=== PATIENT | female | born 1960 | race Hispanic/Latino ===

== ENCOUNTER 2018-08-21 22:01 | Emergency (ER) | payer SELFPAY ==
--- NOTE | 2018-08-21 22:23 | RAD ---
PORTABLE CHEST ONE VIEW: 08/21/18 at 10:12 p.m. HISTORY: Shortness of breath. COMPARISON: Comparison is made with the exam of 09/08/16. FINDINGS: The heart is enlarged. The lungs are expanded without focal areas of consolidation, pneumothoraces, f rank pulmonary edema or pleural effusions. IMPRESSION: No acute process. POS: [facility]
[2018-08-21 22:48] LABS: #Eosinphils 0.1 thou/uL (0.0-0.7); #Lymphocytes 2.1 thou/uL (1.20-3.40); #Monocytes 0.6 thou/uL (0.11-0.59); #Neutrophils 5.3 thou/uL (1.40-6.50); %Basophils 0.4 % (0.0-1.0); %Eosinophils 0.9 % (0.0-10.0); %Lymphocytes 25.4 % (21.0-51.0); %Monocytes 7.5 % (0.0-10.0); %Neutrophils 65.8 % (42.0-75.0); Hemoglobin 13.3 g/dL (12.0-16.0); Mean Corpuscular HGB CONC 33.4 g/dL (32.0-36.0); Mean Corpuscular Hemoglobin 27.7 pg (27.0-31.0); Mean Corpuscular Volume 83.1 fL (78.0-98.0); Mean Platelet Volume 8.8 fL (7.4-10.4); Platelet Count 182 thou/uL (130-400); RBC Distribution Width 13.7 % (11.5-14.5); Red Blood Cell (RBC) Count 4.78 mill/uL (4.20-5.40); White Blood Cell (WBC) Count 8.1 thou/uL (4.8-10.8)
[2018-08-21 23:19] LABS: ALT (SGPT) 8 U/L (8-55); AST (SGOT) 12 U/L (5-34); Albumin 3.6 g/dL (3.5-5.0); Alkaline Phosphatase 121 U/L (40-150); Anion Gap 9 mmol/L (10-20); BUN (Urea Nitrogen) 14 mg/dL (9.8-20.1); Bilirubin, Total 0.6 mg/dL (0.2-1.2); Calc. Creatinine Clearance 0 mL/min (70-130); Calcium 9.8 mg/dL (7.8-10.44); Carbon Dioxide 29 mmol/L (22-29); Chloride 101 mmol/L (98-107); Estimated GFR-MDRD 73; Glucose 209 mg/dL (70-105); Lipase 31 U/L (8-78); Potassium 4.1 mmol/L (3.5-5.1); Protein, Total 7.6 g/dL (6.0-8.3); Sodium 135 mmol/L (136-145)
[2018-08-22 02:42] LABS: Bilirubin Small (Negative); Blood, Urine Negative (Negative); Glucose, Urine (Dipstick) 500 mg/dL (Negative); Leukocyte Negative (Negative); Nitrite Negative (Negative); Protein, Urine (Dipstick) Negative (Neg-Trace); Specific Gravity, Urine 1.025 (1.005-1.030); pH, Urine 5.5 (5.0-9.0)
[2018-08-22 02:44] LABS: Clarity Clear (Clear)
[2018-08-22] MEDS ORDERED: Magnesium Citrate 300 ML BOT ONE (03:46)
--- NOTE | 2018-08-22 07:44 | CT ---
PRELIMINARY REPORT: CT Abdomen and Pelvis With Contrast EXAM DATE/TIME: 08/22/2018 2:00 AM CLINICAL HISTORY: 57 years old, female; Pain; Abdominal pain; Localized; Left; Prior surgery; Patient HX: Patient repor ts abdominal bloating and pain increasing over the past month. She reports left sided pain. PT reports increased SOB with exertion. She reports history of hernia and gallbladder removal. PT denies nausea/vomiting or diarrhea. TECHNIQUE: Imaging protocol: Axial computed tomography images of the abdomen and pelvis with intravenous contrast. Coronal reformatted images were created and reviewed. COMPARISON: No relevant prior studies available. FINDINGS: Lower thorax: No acute findings. ABDOMEN: Liver: Normal. No mass. Gallbladder and bile ducts: Gallbladder not visualized. No biliary ductal dilatation. Pancreas: Normal. No ductal dilation. Spleen: Normal. No splenomegaly. Adrenals: Normal. No mass. Kidneys and ureters: Normal. No hydronephrosis. Stomach and bowel: No bowel wall thickening or intestinal obstruction. Appendix: Normal appendix. PELVIS: Bladder: Unremarkable as visualized. Reproductive: Unremarkable as visualized. ABDOMEN and PELVIS: Intraperitoneal space: Normal. No free air. No significant fluid collection. Bones/joints: No acute fracture. No dislocation. Soft tissues: Large fat containing umbilical hernia. No associated inflammation. Vasculature: Normal. No abdominal aortic aneurysm. Lymph nodes: Normal. No enlarged lymph nodes. IMPRESSION: No acute findings. Thank you for allowing us to participate in the care of your patient. Dictated and Authenticated by: Domingo Maher MD 08/22/2018 3:22 AM Central Time ([place] & [place]) FINAL REPORT: IMPRESSION: Agree with the preliminary interpretation given by [facility]. Transcribed Date/Time: 08/22/2018 8:33 AM
== END 2018-08-22 03:50 | disposition home or self-care (01) ==
LOC: ERS 22:01
DX: K59.00 Constipation, unspecified (principal); E11.9 Type 2 diabetes mellitus without complications; E03.9 Hypothyroidism, unspecified; F41.9 Anxiety disorder, unspecified; Z79.84 Long term (current) use of oral hypoglycemic drugs; Z79.899 Other long term (current) drug therapy
CPT/HCPCS: 36415; 71045; 74177; 80053; 81003; 83690; 84484; 85025; 93005

== ENCOUNTER 2018-11-24 17:17 | Emergency (ER) | payer MEDICAID ==
[2018-11-24 18:08] LABS: Bacteria/HPF 2+ HPF (None Seen); Bilirubin Negative (Negative); Blood, Urine Trace (Negative); Clarity Turbid (Clear); Glucose, Urine (Dipstick) Greater than 1000 mg/dL (Negative); Leukocyte 500 Leu/uL (Negative); Mucous/LPF 2+ LPF (<2+); Nitrite Negative (Negative); Protein, Urine (Dipstick) 30 mg/dL (Neg-Trace); WBC/HPF Greater than 50 HPF (0-3)
[2018-11-24 18:18] LABS: #Eosinphils 0.1 thou/uL (0.0-0.7); #Lymphocytes 1.9 thou/uL (1.20-3.40); #Monocytes 0.6 thou/uL (0.11-0.59); #Neutrophils 4.6 thou/uL (1.40-6.50); %Basophils 0.1 % (0.0-1.0); %Eosinophils 0.8 % (0.0-10.0); %Lymphocytes 26.9 % (21.0-51.0); %Monocytes 7.6 % (0.0-10.0); %Neutrophils 64.7 % (42.0-75.0); Hemoglobin 13.2 g/dL (12.0-16.0); Mean Corpuscular HGB CONC 32.4 g/dL (32.0-36.0); Mean Corpuscular Hemoglobin 27.5 pg (27.0-31.0); Mean Corpuscular Volume 84.9 fL (78.0-98.0); Mean Platelet Volume 9.1 fL (7.4-10.4); Platelet Count 147 thou/uL (130-400); RBC Distribution Width 15.2 % (11.5-14.5); White Blood Cell (WBC) Count 7.2 thou/uL (4.8-10.8)
[2018-11-24 18:42] LABS: ALT (SGPT) 20 U/L (8-55); AST (SGOT) 22 U/L (5-34); Albumin 3.5 g/dL (3.5-5.0); Alkaline Phosphatase 105 U/L (40-150); Anion Gap 11 mmol/L (10-20); BUN (Urea Nitrogen) 8 mg/dL (9.8-20.1); Bilirubin, Total 0.9 mg/dL (0.2-1.2); Calc. Creatinine Clearance 0 mL/min (70-130); Calcium 9.6 mg/dL (7.8-10.44); Carbon Dioxide 26 mmol/L (22-29); Chloride 101 mmol/L (98-107); Estimated GFR-MDRD 82; Globulin 3.8 g/dL (2.4-3.5); Glucose 241 mg/dL (70-105); Protein, Total 7.3 g/dL (6.0-8.3); Sodium 134 mmol/L (136-145)
[2018-11-24 18:59] LABS: Free T4 (Free Thyroxine) 0.62 ng/dL (0.70-1.48); Thyroid Stimulating Hormone 30.5801 uIU/mL (0.35-4.94)
== END 2018-11-24 19:30 | disposition home or self-care (01) ==
LOC: ERS 17:17
DX: E03.9 Hypothyroidism, unspecified (principal); E11.9 Type 2 diabetes mellitus without complications; F41.9 Anxiety disorder, unspecified; F32.9 Major depressive disorder, single episode, unspecified; Z79.84 Long term (current) use of oral hypoglycemic drugs; Z79.899 Other long term (current) drug therapy
CPT/HCPCS: 36415; 80053; 81003; 81015; 84439; 84443; 85025; 99284

== ENCOUNTER 2020-05-18 19:07 | Inpatient (IN) | payer MEDICAID, OTHER ==
[~2020-05-18 19:07] MED LIST: Iopamidol-370 76% 500 ML 1 ML ONE
--- NOTE | 2020-05-18 19:27 | CT ---
CT BRAIN: Date: 05-18-2020 PROVIDED CLINICAL HISTORY: Left sided weakness and numbness Comparison: 10-23-12 FINDINGS: The ventricular system appears normal in size and morphology. There is no evidence for intracranial h emorrhage or mass effect. The extracranial soft tissues and osseous structures demonstrate an unremar kable CT appearance. IMPRESSION: No evidence for intracranial hemorrhage or mass effect. Findings discussed with Dr. Mendez via telep yusef, 7:21 p.m. on 05-18-2020. POS: [facility]
[2020-05-18 19:36] LABS: #Eosinphils 0.1 thou/uL (0.0-0.7); #Lymphocytes 2.5 thou/uL (1.20-3.40); #Monocytes 0.5 thou/uL (0.11-0.59); #Neutrophils 5.1 thou/uL (1.40-6.50); %Basophils 0.4 % (0.0-1.0); %Eosinophils 1.2 % (0.0-10.0); %Monocytes 6.4 % (0.0-10.0); Hemoglobin 14.1 g/dL (12.0-16.0); Mean Corpuscular Hemoglobin 28.8 pg (27.0-31.0); Mean Corpuscular Volume 84.5 fL (78.0-98.0); Mean Platelet Volume 9.2 fL (7.4-10.4); Platelet Count 167 thou/uL (130-400); RBC Distribution Width 13.4 % (11.5-14.5); Red Blood Cell (RBC) Count 4.89 mill/uL (4.20-5.40); White Blood Cell (WBC) Count 8.2 thou/uL (4.8-10.8)
[2020-05-18 19:42] LABS: PTT 28.6 sec (22.9-36.1)
[2020-05-18 19:43] LABS: INR-International Normal Ratio 0.9; Prothrombin Time 12.6 sec (12.0-14.7)
[2020-05-18 19:57] LABS: ALT (SGPT) 12 U/L (8-55); AST (SGOT) 11 U/L (5-34); Albumin 3.8 g/dL (3.5-5.0); Alkaline Phosphatase 134 U/L (40-110); Anion Gap 18 mmol/L (10-20); BUN (Urea Nitrogen) 14 mg/dL (9.8-20.1); Bilirubin, Total 0.5 mg/dL (0.2-1.2); Calc. Creatinine Clearance 0 mL/min (70-130); Calcium 10.4 mg/dL (7.8-10.44); Carbon Dioxide 24 mmol/L (22-29); Chloride 97 mmol/L (98-107); Glucose 437 mg/dL (70-105); Potassium 4.4 mmol/L (3.5-5.1); Protein, Total 7.8 g/dL (6.0-8.3); Sodium 135 mmol/L (136-145)
[2020-05-18] MEDS ORDERED: Aspirin Chewable 81 MG TAB ONE (22:53)
[2020-05-18] MEDS ORDERED: Insulin Regular 300 UNITS/3 ML VIAL ONE (22:53)
[2020-05-18] MEDS ORDERED: Labetalol HCl 100 MG/20 ML VIAL ONE (23:38)
[2020-05-19] MEDS ORDERED: Ondansetron PF 4 MG/2 ML Vial ONE ×3 (00:38→18:36)
[2020-05-19] MEDS ORDERED: Ondansetron ODT 4 MG TAB PO PRN (01:22)
--- NOTE | 2020-05-19 01:48 | PDOC.HHP ---
Hospitalist HPI - History of Present Illness Left-sided weakness History of Present Illness: 59-year-old male patient with a history of diabetes and hypothyroidism was brought in by EMS on account of left-sided weakness. This occurred suddenly while she was sitting in a chair. On arrival EMS noted her blood pressure was 200/29, heart rate 94 and breathing 98% on room air. On arrival CBC was generally unremarkable, showed a mild hyponatremia of 126 and glucose elevated at 437. CT scan of her head and CTA showed no evidence of intracranial hemorrhage or mass with no hemodynamic medically significant stenosis, occlusion or aneurysm respectively. Complex cystic lesion was noted in the region of the left parotid gland. At presentation she met criteria for TPA however on discussion with family they refused to take it. After several hours he reconsidered and also ended up declining. Patient receiv ed 325 mg aspirin, labetalol for blood pressure and 10 units regular insulin. Also received a liter of normal saline. Hospitalist team was consulted to admit Hospitalist ROS - Review of Systems Constitutional: denies: fever, chills, sweats, weakness Eyes: denies: pain, vision change, conjunctivae inflammation Cardiovascular: denies: chest pain, palpitations, orthopnea, paroxysmal noc. dyspnea Gastrointestinal: denies: nausea, vomiting, abdominal pain, diarrhea Genitourinary: denies: dysuria, frequency, incontinence, hematuria Musculoskeletal: denies: neck pain, shoulder pain, arm pain, back pain Neurological: reports: weakness, numbness, change in speech. denies: incoordina tion, confusion All other systems reviewed; all pertinent +/- noted in HPI/Subj - Medication Medications: Medications: Currently refer to ambulatory list Allergies: No known drug allergies. Hospitalist History - Past Medical History Other Medical History: Diabetes mellitus - Past Surgical History Other Surgical History: Hernia repair - Family History Family History: reports: cerebrovascular accident - Social History Smoking Status: Never smoker Alcohol: reports: None Living Situation: With Family - Exam General Appearance: awake alert General - other findings: Patiently slightly depressed Eye: PERRL, anicteric sclera ENT: normocephalic atraumatic, no oropharyngeal lesions Neck: supple, symmetric, no JVD, no thyromegaly Heart: RRR, no murmur, no gallops, no rubs Respiratory: CTAB, no wheezes, no rales, no ronchi Gastrointestinal: soft, non-tender, non-distended, normal bowel sounds Extremities: no cyanosis, no clubbing, no edema Skin: normal turgor, no lesions, no rashes Neurological - other findings: Left facial droop, left-sided hemiparesis Psychiatric: normal behavior, A&O x 3 Hospitalist Results - Labs Result Diagrams: 05/22/20 05:05 05/22/20 05:05 Lab results: WBC 8.2 thou/uL (4.8-10.8) 05/18/20 19:18 Hgb 14.1 g/dL (12.0-16.0) 05/18/20 19:18 Hct 41.3 % (36.0-47.0) 05/18/20 19:18 MCV 84.5 fL (78.0-98.0) 05/18/20 19:18 Plt Count 167 thou/uL (130-400) 05/18/20 19:18 Neutrophils % 62.0 % (42.0-75.0) 05/18/20 19:18 Sodium 135 mmol/L (136-145) L 05/18/20 19:18 Potassium 4.4 mmol/L (3.5-5.1) 05/18/20 19:18 Chloride 97 mmol/L (98-107) L 05/18/20 19:18 Carbon Dioxide 24 mmol/L (22-29) 05/18/20 19:18 BUN 14 mg/dL (9.8-20.1) 05/18/20 19:18 Creatinine 0.85 mg/dL (0.6-1.1) 05/18/20 19:18 Glucose 437 mg/dL (70-105) H 05/18/20 19:18 Calcium 10.4 mg/dL (7.8-10.44) 05/18/20 19:18 Total Bilirubin 0.5 mg/dL (0.2-1.2) 05/18/20 19:18 AST 11 U/L (5-34) 05/18/20 19:18 ALT 12 U/L (8-55) 05/18/20 19:18 Alkaline Phosphatase 134 U/L (40-110) H 05/18/20 19:18 Troponin I Less than 0.010 ng/mL (< 0.028) 05/18/20 19:18 B-Natriuretic Peptide Less than 10.0 pg/mL (0-100) 05/18/20 19:18 Serum Total Protein 7.8 g/dL (6.0-8.3) 05/18/20 19:18 Albumin 3.8 g/dL (3.5-5.0) 05/18/20 19:18 Hospitalist H&P A/P - Plan Plan: This is a 59-year-old female patient history of diabetes mellitus presenting with left-sided face and body weakness concerning for acute stroke. Patient refused TPA although she was within the window. Stroke Ischemicunclear mechanism. CTA reveals no lesions. We will do echo in a.m. with bubble study Continue aspirin Statin PT OT evaluation Neuro consult in a.m. Diabetes mellitus Start correctional insulin Monitor glucose. Left neck lesion Consider evaluation with MRI VT prophylaxisLovenox CODE STATUSfull code
[2020-05-19] MEDS ORDERED: Dextrose 5% in Water 1,000 ML IV PRN (02:23)
[2020-05-19] MEDS ORDERED: Dextrose 50% Abboject 50 ML SYRINGE SLOW IVP PRN (02:23)
[2020-05-19] MEDS: Ondansetron PF 4 MG/2 ML Vial IVP PRN ×2 (03:31→18:46)
[2020-05-19 05:56] LABS: #Lymphocytes 2.2 thou/uL (1.20-3.40); #Monocytes 0.6 thou/uL (0.11-0.59); #Neutrophils 6.4 thou/uL (1.40-6.50); %Basophils 0.4 % (0.0-1.0); %Eosinophils 0.5 % (0.0-10.0); %Monocytes 6.3 % (0.0-10.0); %Neutrophils 68.7 % (42.0-75.0); Hemoglobin 12.9 g/dL (12.0-16.0); Mean Corpuscular HGB CONC 32.8 g/dL (32.0-36.0); Mean Corpuscular Hemoglobin 27.8 pg (27.0-31.0); Mean Corpuscular Volume 84.7 fL (78.0-98.0); Mean Platelet Volume 9.4 fL (7.4-10.4); Platelet Count 177 thou/uL (130-400); RBC Distribution Width 13.4 % (11.5-14.5); Red Blood Cell (RBC) Count 4.63 mill/uL (4.20-5.40); White Blood Cell (WBC) Count 9.3 thou/uL (4.8-10.8)
[2020-05-19 06:14] LABS: Anion Gap 13 mmol/L (10-20); BUN (Urea Nitrogen) 13 mg/dL (9.8-20.1); Calc. Creatinine Clearance 0 mL/min (70-130); Calcium 9.6 mg/dL (7.8-10.44); Carbon Dioxide 28 mmol/L (22-29); Cardiac Risk 6.1 (Less than 4.5); Chloride 98 mmol/L (98-107); Cholesterol 201 mg/dl (< 200 Desired); Glucose 316 mg/dL (70-105); HDL Cholesterol 33 mg/dL (>60 Neg Risk); LDL Cholesterol, Calculated 121 mg/dL; Sodium 135 mmol/L (136-145); Triglycerides 236 mg/dL (Less than 150)
[2020-05-19] MEDS: Aspirin 81 mg Enteric Coated Tablet PO SCH ×2 (12:50→13:06)
[2020-05-19] MEDS ORDERED: Enoxaparin Sodium 40 MG/0.4 ML SYRINGE ONE (12:51)
[2020-05-19] MEDS ORDERED: Aspirin 81 mg Enteric Coated Tablet ONE (13:01)
[2020-05-19] MEDS: Enoxaparin Sodium 40 MG/0.4 ML SYRINGE SC SCH (13:06)
--- NOTE | 2020-05-19 14:56 | CON ---
NEUROLOGY CONSULTATION DATE OF CONSULTATION: 05/19/2020 REASON FOR CONSULTATION: Left-sided weakness, stroke. HISTORY OF PRESENT ILLNESS: Ms. Raegan Bartlett is a 59-year-old female with medical history significant for diabetes and hypothyroidism, brought by EMS because of left-sided weakness. Per patient, she was sitting in a chair and all of a sudden she felt weak on the left side of her body. She called her friend who asked her to come to the emergency room to evaluate for stroke. When EMS arrived, her blood pressure was 200/129, heart rate was 94, and she was breathing 98% on room air. She was also found to have hyponatremia of 126 and glucose elevated at 437. CT of the head was done, which did not reveal any evidence of acute intracranial pathology. CTA of the head did not reveal hemodynamically significant stenosis. She did meet criteria for tPA. However, on discussion with family, they declined tPA. The patient received aspirin 325 mg and labetalol for blood pressure and 10 units of regular insulin and normal saline and admitted for further stroke evaluation. The patient denies nausea, vomiting, headache, chest pain, abdominal pain, recent illness or recent exposure to COVID. REVIEW OF SYSTEMS: All systems reviewed and were negative except pertinent positives and negatives mentioned in the HPI. HOME MEDICATIONS: Please see medication reconciliation list for updated medications. ALLERGIES: NO KNOWN DRUG ALLERGIES. PAST MEDICAL HISTORY: Diabetes, hypothyroidism. PAST SURGICAL HISTORY: Hernia repair. FAMILY HISTORY: Significant for cerebrovascular accident. SOCIAL HISTORY: The patient lives with family. Denies smoking, alcohol or illegal drug use. PHYSICAL EXAMINATION: 180/90, heart rate was 90, and she was breathing 98% on room air. General Appearance: awake alert Eye: PERRL, anicteric sclera ENT: normocephalic atraumatic, no oropharyngeal lesions Neck: supple, symmetric, no JVD, no thyromegaly Heart: RRR, no murmur, no gallops, no rubs Respiratory: CTAB, no wheezes, no rales, no ronchi Gastrointestinal: soft, non-tender, non-distended, normal bowel sounds Extremities: no cyanosis, no clubbing, no edema Skin: normal turgor, no lesions, no rashes Neurological -Mental Status: The patient is alert and oriented to person, place, and time. Speech is slurred. Cranial nerves 2 through 12 intact except 7 left facial droop and 10 dysarthria. Motor, muscle, tone and bulk are normal. Strength is 5/5 in the right upper and lower extremities, 1/5 in the left upper and lower extremities. Cerebellar, unable to perform on the left secondary to weakness. Sensory decreased withdraws to nailbed pressure, right greater than left. Gait deferred due to patient's safety reasons. DATA REVIEWED: I reviewed the labs which were significant for hyperglycemia of 437. Lab results: WBC 8.2 thou/uL (4.8-10.8) 05/18/20 19:18 Hgb 14.1 g/dL (12.0-16.0) 05/18/20 19:18 Hct 41.3 % (36.0-47.0) 05/18/20 19:18 MCV 84.5 fL (78.0-98.0) 05/18/20 19:18 Plt Count 167 thou/uL (130-400) 05/18/20 19:18 Neutrophils % 62.0 % (42.0-75.0) 05/18/20 19:18 Sodium 135 mmol/L (136-145) L 05/18/20 19:18 Potassium 4.4 mmol/L (3.5-5.1) 05/18/20 19:18 Chloride 97 mmol/L (98-107) L 05/18/20 19:18 Carbon Dioxide 24 mmol/L (22-29) 05/18/20 19:18 BUN 14 mg/dL (9.8-20.1) 05/18/20 19:18 Creatinine 0.85 mg/dL (0.6-1.1) 05/18/20 19:18 Glucose 437 mg/dL (70-105) H 05/18/20 19:18 Calcium 10.4 mg/dL (7.8-10.44) 05/18/20 19:18 Total Bilirubin 0.5 mg/dL (0.2-1.2) 05/18/20 19:18 AST 11 U/L (5-34) 05/18/20 19:18 ALT 12 U/L (8-55) 05/18/20 19:18 Alkaline Phosphatase 134 U/L (40-110) H 05/18/20 19:18 Troponin I Less than 0.010 ng/mL (< 0.028) 05/18/20 19:18 B-Natriuretic Peptide Less than 10.0 pg/mL (0-100) 05/18/20 19:18 Serum Total Protein 7.8 g/dL (6.0-8.3) 05/18/20 19:18 Albumin 3.8 g/dL (3.5-5.0) 05/18/20 19:18 ASSESSMENT AND PLAN: Ms. Bartlett is a 59-year-old female with medical history significant for diabetes and hypothyroidism, presented with left facial droop and left-sided weakness consistent with acute stroke. The patient refused tPA, although she was within the window. Head CT reviewed which was negative for acute intracranial pathology. CTA of the head and neck did not reveal hemodynamically significant stenosis. Telemetry to rule out arrhythmias. 2D echo to evaluate left ventricular ejection fraction. Start aspirin and high-intensity statin for secondary stroke prevention. Check hemoglobin A1c, fasting lipid panel, and TSH, neuro checks every 4 hours. Permissive control of blood pressure at this time. Strict control of blood glucose. N.p.o. until cleared by speech or bedside nursing eval. Consider rectal aspirin until patient is cleared for oral intake. Telemetry to rule out arrhythmias. PT/OT/Speech. Continue medical management per primary team. Deep vein thrombosis prophylaxis. We will continue to follow. Plan discussed in detail with the patient, daughter at bedside and the primary attending Dr. Ch. Thank you for the consult. Job ID: [id number]
[2020-05-19] MEDS: Sodium Chloride 0.9% 1,000 ML IV SCH (17:03)
[2020-05-19 17:19] LABS: SARS-CoV-2 NAA Rapid Test Not Detected (NotDetected)
[2020-05-19] MEDS: Atorvastatin Calcium 40 MG TAB PO SCH (21:01)
[2020-05-20 01:27] VITALS: BMI 47.6
[2020-05-20] MEDS ORDERED: Aspirin 81 mg Enteric Coated Tablet ONE (09:13)
[2020-05-20] MEDS ORDERED: Aspirin Chewable 81 MG TAB ONE (09:13)
[2020-05-20] MEDS: Enoxaparin Sodium 40 MG/0.4 ML SYRINGE SC SCH (10:21)
[2020-05-20] MEDS: Aspirin 81 mg Enteric Coated Tablet PO SCH (10:22)
--- NOTE | 2020-05-20 10:52 | CT ---
EXAM: CT ANGIOGRAM OF THE HEAD AND NECK INDICATION: Stroke COMPARISON: None TECHNIQUE: CT angiogram of the head and neck are performed in the axial plane. Three-dimensional refo rmatted images are submitted for interpretation. FINDINGS: CTA OF THE HEAD WITH AND WITHOUT CONTRAST: POSTCONTRAST CT OF BRAIN: Pathologic enhancement: No pathologic enhancement the brain. Postcontrast soft tissue neck CT: Aerodigestive tract:Aerodigestive tract is patent. No mucosal abnormality. Limited evaluation of the oral cavity due to dental amalgam artifact. Epiglottis has a normal caliber. Preepiglottic fat is preserved. Sinuses: Adequate aeration of the paranasal sinuses and mastoid air cells.. Orbits: Bilateral ocular lens implants are appropriately located. Both globes are intact. Retrobulbar fat is preserved. Symmetric attenuation the optic nerves and ocular rectus muscles. Salivary glands:Symmetric attenuation of the parotid and symmetrical glands. There is a hypodense mas s posterior to the left parotid gland measuring 2.5 x 1.8 cm with an attenuation coefficient of 21 Hounsfield units. Complex cystic lesion is suspected. Nonemergent pre and postcontrast soft tissue ne ck MRI can be performed for better interrogation. Thyroid gland: Appropriate attenuation of the thyroid gland. Lymph nodes: No evidence of lymphadenopathy by size criteria. Paraspinal muscles: Symmetric attenuation of the sternocleidomastoid muscles. Appropriate attenuation of the paraspinal muscles. Cervical spine:Vertebral body heights are maintained. No fracture. Extensive anterior osteophyte form ation at C4-T1. Varying degrees of central canal stenosis and neural foraminal narrowing on the basis of degenerative change. Upper mediastinum and lung apices: No acute abnormality. CTA OF THE NECK WITH CONTRAST: Aorta: Appropriate enhancement and luminal diameter Right carotid artery: Appropriate enhancement and luminal diameter Left carotid: Appropriate enhancement and luminal diameter Subclavian arteries:Symmetric enhancement and luminal diameter Vertebral arteries:Occlusion of the proximal to mid right cervical vertebral artery. Distal vertebral artery may be present in extremely diminutive. Patent left vertebral artery, throughout its course in the neck. CTA OF THE BRAIN: Intracranial internal carotid arteries:Appropriate enhancement and luminal diameter. Atherosclerosis involving bilateral paraclinoid segments Anterior circulation: Appropriate enhancement and luminal diameter the A1 segments, A2 segments, M1 s egments and proximal MCA branches. Intracranial vertebral arteries: Intracranial right vertebral artery is not appreciated. Left vertebr al artery is patent. Posterior circulation: Basilar artery is supplied essentially by the left vertebral artery. Bilateral P1 segments IMPRESSION: 1. No hemodynamically significant stenosis, occlusion or aneurysmal formation. 2. Left neck lesion as above. Lesion may be adjacent to an external of the parotid gland. Complex cys tic lesion is favored. Nonemergent MRI. Results study discussed with Dr. Mendez 05/18/2020 at 7:45 PM Code CR Transcribed Date/Time: 05/20/2020 10:51 AM
[2020-05-20] MEDS: Sodium Chloride 0.9% 1,000 ML IV SCH ×2 (11:29→22:30)
--- NOTE | 2020-05-20 13:00 | PDOC.NEUPN ---
- Subjective Encounter Date: 05/20/20 Subjective: Mrs. Bartlett has no new events overnight. She continues to have significant left-sided deficits. - Objective Vital Signs & Weight: Vital Signs (12 hours) Temp Pulse Resp BP Pulse Ox 05/20/20 12:00 98.1 F 78 22 H 148/65 H 96 05/20/20 08:00 97.5 F L 76 20 125/62 96 05/20/20 03:42 97.9 F 75 24 H 147/67 H 97 05/20/20 01:10 98.7 F 72 20 158/66 H 96 Weight Weight 286 lb 2.56 oz Result Diagrams: 05/19/20 05:20 05/19/20 05:20 Additional Labs: Accuchecks 05/20/20 05/20/20 10:10 05:33 POC Glucose 241 H 246 H Radiology Reviewed by me: Yes EKG Reviewed by me: Yes ROS - Review of Systems Constitutional: denies: fever, chills, sweats, weakness, malaise, other Eyes: denies: pain, vision change, conjunctivae inflammation, eyelid inflammation, redness, other Respiratory: denies: cough, dry, shortness of breath, hemoptysis, SOB with excertion, pleuritic pain, sputum, wheezing, other Musculoskeletal: denies: neck pain, shoulder pain, arm pain, back pain, hand pain, leg pain, foot pain, other Neurological: reports: weakness, numbness, incoordination, change in speech. denies: confusion, seizures, other - Medication Medications: Active Medications Generic Name Dose Route Start Last Admin Trade Name Autumn PRN Reason Stop Dose Admin Aspirin 81 mg 05/19/20 09:00 05/20/20 10:22 Aspirin 81 Mg Enteric Coated Tablet PO 81 mg DAILY TEGAN Administration Atorvastatin Calcium 40 mg 05/19/20 21:00 05/19/20 21:01 Atorvastatin Calcium 40 Mg Tab PO Not Given HS TEGAN Enoxaparin Sodium 40 mg 05/19/20 09:00 05/20/20 10:21 Enoxaparin Sodium 40 Mg/0.4 Ml Syringe SC 40 mg 0900 TEGAN Administration Sodium Chloride 1,000 mls @ 75 mls/hr 05/19/20 16:15 05/20/20 11:29 Normal Saline 0.9% IV Not Given .[id number] TEGAN Ondansetron HCl 4 mg 05/19/20 01:22 05/19/20 18:46 Ondansetron Pf 4 Mg/2 Ml Vial IVP 4 mg Q6H PRN Administration Nausea/Vomiting Sodium Chloride 10 ml 05/19/20 01:22 05/19/20 03:31 Flush - Normal Saline 10 Ml Syringe IVF 10 ml PRN PRN Administration Saline Flush Results - Labs Result Diagrams: 05/19/20 05:20 05/19/20 05:20 Lab results: WBC 9.3 thou/uL (4.8-10.8) 05/19/20 05:20 Hgb 12.9 g/dL (12.0-16.0) 05/19/20 05:20 Hct 39.2 % (36.0-47.0) 05/19/20 05:20 MCV 84.7 fL (78.0-98.0) 05/19/20 05:20 Plt Count 177 thou/uL (130-400) 05/19/20 05:20 Neutrophils % 68.7 % (42.0-75.0) 05/19/20 05:20 Sodium 135 mmol/L (136-145) L 05/19/20 05:20 Potassium 4.0 mmol/L (3.5-5.1) 05/19/20 05:20 Chloride 98 mmol/L (98-107) 05/19/20 05:20 Carbon Dioxide 28 mmol/L (22-29) 05/19/20 05:20 BUN 13 mg/dL (9.8-20.1) 05/19/20 05:20 Creatinine 0.77 mg/dL (0.6-1.1) 05/19/20 05:20 Glucose 316 mg/dL (70-105) H 05/19/20 05:20 Calcium 9.6 mg/dL (7.8-10.44) 05/19/20 05:20 Total Bilirubin 0.5 mg/dL (0.2-1.2) 05/18/20 19:18 AST 11 U/L (5-34) 05/18/20 19:18 ALT 12 U/L (8-55) 05/18/20 19:18 Alkaline Phosphatase 134 U/L (40-110) H 05/18/20 19:18 Troponin I Less than 0.010 ng/mL (< 0.028) 05/18/20 19:18 B-Natriuretic Peptide Less than 10.0 pg/mL (0-100) 05/18/20 19:18 Serum Total Protein 7.8 g/dL (6.0-8.3) 05/18/20 19:18 Albumin 3.8 g/dL (3.5-5.0) 05/18/20 19:18 - Radiology Interpretation CT scan - head Additional Comment: Head CT negative for acute intracranial pathology PN A/P (1) Acute CVA (cerebrovascular accident) Code(s): I63.9 - CEREBRAL INFARCTION, UNSPECIFIED Status: Acute (2) Hypertension Code(s): I10 - ESSENTIAL (PRIMARY) HYPERTENSION Status: Acute (3) Hyperlipidemia Code(s): E78.5 - HYPERLIPIDEMIA, UNSPECIFIED Status: Acute (4) Diabetes Code(s): E11.9 - TYPE 2 DIABETES MELLITUS WITHOUT COMPLICATIONS Status: Acute - Plan Daily Plan: PT/OT, speech therapy, DVT proph w/lovenox Mrs. Bartlett is a 59-year-old female who presented with acute onset left-sided weakness. She was in the window for TPA but patient declined it. She continues to have significant left focal deficits. She has left facial droop and left hemiplegia. MRI of the brain is not performed . Consider head CT 48 hours after symptom onset to assess for acute stroke. Neurochecks every [address] reviewed which was negative for acute intracranial pathology. CTA of the head and neck did not show hemodynamically significant stenosis. Telemetry to rule out arrhythmias. 2D echo showed ejection fraction 55 to 60%. No thrombus or PFO. Permissive control of blood pressure at this time. Strict control of blood glucose Continue aspirin and high intensity statin for secondary stroke prevention. PT/OT/speech. Continue medical management per primary team.
--- NOTE | 2020-05-20 14:01 | RAD ---
Modified barium swallow HISTORY: Dysphagia. Difficulties. FINDINGS: Exam was performed in conjunction with speech pathology with multiple consistencies. Video review is available and demonstrates good bolus formation and retropulsion. Good initiation of swallowing. Deep penetration with the liquids. No sheng aspiration. Minimal residue. Good clearance upon secondary swallowing. Prominent anterior osteophyte of the cervical spine at the C4-5 level. No compromise of contrast pass age. The esophagus below the level of the hypopharynx was not evaluated. No evidence of obstruction. Please see separate detailed report from speech pathology.
--- NOTE | 2020-05-20 18:16 | PDOC.HOSPP ---
- Subjective Encounter Date: 05/20/20 Subjective: Patient continues to have fairly dense left hemiplegia. She is able to move her left hand and thumb a very small amount. She also has a bulging area below her left ear which has been fairly uncomfortable. This is not new and has been somewhat intermittent. She does admit that it is worse when she attempts to eat. - Objective Vital Signs & Weight: Vital Signs (12 hours) Temp Pulse Resp BP Pulse Ox 05/20/20 16:00 98.5 F 74 18 141/79 H 100 05/20/20 12:00 98.1 F 78 22 H 148/65 H 96 05/20/20 08:45 96 05/20/20 08:00 97.5 F L 76 20 125/62 96 Weight Admit Weight 286 lb Weight 286 lb 2.56 oz Result Diagrams: 05/19/20 05:20 05/19/20 05:20 Additional Labs: Accuchecks 05/20/20 05/20/20 05/20/20 16:20 10:10 05:33 POC Glucose 262 H 241 H 246 H Hospitalist ROS - Medication Medications: Active Medications Generic Name Dose Route Start Last Admin Trade Name Freq PRN Reason Stop Dose Admin Aspirin 81 mg 05/19/20 09:00 05/20/20 10:22 Aspirin 81 Mg Enteric Coated Tablet PO 81 mg DAILY TEGAN Administration Atorvastatin Calcium 40 mg 05/19/20 21:00 05/19/20 21:01 Atorvastatin Calcium 40 Mg Tab PO Not Given HS TEGAN Enoxaparin Sodium 40 mg 05/19/20 09:00 05/20/20 10:21 Enoxaparin Sodium 40 Mg/0.4 Ml Syringe SC 40 mg 0900 TEGAN Administration Sodium Chloride 1,000 mls @ 75 mls/hr 05/19/20 16:15 05/20/20 11:29 Normal Saline 0.9% IV Not Given .[id number] TEGAN Ondansetron HCl 4 mg 05/19/20 01:22 05/19/20 18:46 Ondansetron Pf 4 Mg/2 Ml Vial IVP 4 mg Q6H PRN Administration Nausea/Vomiting Sodium Chloride 10 ml 05/19/20 01:22 05/19/20 03:31 Flush - Normal Saline 10 Ml Syringe IVF 10 ml PRN PRN Administration Saline Flush - Exam General Appearance: NAD, awake alert General - other findings: Morbidly obese Neck: supple Neck - other findings: Left inferior parotid duct obstruction/dilatation. Heart: RRR, no murmur, no gallops, no rubs, normal peripheral pulses Respiratory: CTAB, no wheezes, no rales, no ronchi, normal chest expansion, no tachypnea, normal percussion Gastrointestinal: soft, non-tender, non-distended, normal bowel sounds, no palpable masses, no hepatomegaly, no splenomegaly, no bruit Extremities: no cyanosis, no clubbing, no edema Neurological - other findings: Left hemiplegia Psychiatric: normal affect, normal behavior, A&O x 3 Hosp A/P (1) Acute CVA (cerebrovascular accident) Code(s): I63.9 - CEREBRAL INFARCTION, UNSPECIFIED Status: Acute (2) Obstruction of parotid duct Code(s): K11.8 - OTHER DISEASES OF SALIVARY GLANDS Status: Acute (3) Diabetes Code(s): E11.9 - TYPE 2 DIABETES MELLITUS WITHOUT COMPLICATIONS Status: Acute (4) Hyperlipidemia Code(s): E78.5 - HYPERLIPIDEMIA, UNSPECIFIED Status: Acute (5) Hypertension Code(s): I10 - ESSENTIAL (PRIMARY) HYPERTENSION Status: Acute (6) Morbid obesity Code(s): E66.01 - MORBID (SEVERE) OBESITY DUE TO EXCESS CALORIES Status: Acute - Plan Acute CVA with left hemiplegia: Consistent with right MCA CVA. Initial CT negative. MRI not possible due to the patient's weight exceeding the limit. Likely get repeat CT on 05/21/2020. Continue aspirin, statin. PT OT, speech therapy. Neurology consult appreciated. Echocardiogram essentially unremarkable. CTA showing no significant stenosis. Left neck mass: Patient has a tender nodule at the inferior aspect of the left parotid/subauricular area. Based on the patient's description and the exam it is concerning for parotid duct obstruction/partial obstruction. We will need outpatient follow-up. Hypertension: Continue with permissive hypertension. We will resume lisinopril soon. Diabetes mellitus: Continue with Accu-Cheks and sliding scale insulin. Will resume Metformin once her swallow has been cleared. Hypothyroidism: We will resume levothyroxine. Dysphagia: Patient had modified barium swallow with speech therapy. She is on regular diet with extra sauce/gravy and nectar thick liquids.
[2020-05-20] MEDS: metFORMIN 500 MG TAB PO SCH (22:16)
[2020-05-20] MEDS: Atorvastatin Calcium 40 MG TAB PO SCH (22:28)
[2020-05-21] MEDS ORDERED: Ketorolac Tromethamine 30 MG/ML VIAL ONE (00:11)
[2020-05-21] MEDS ORDERED: Ondansetron PF 4 MG/2 ML Vial ONE ×2 (00:17→06:56)
[2020-05-21] MEDS: Ondansetron PF 4 MG/2 ML Vial IVP PRN ×2 (00:21→06:58)
[2020-05-21] MEDS ORDERED: traMADol HCl 50 MG TAB PO PRN (00:32)
[2020-05-21] MEDS ORDERED: Ketorolac Tromethamine 30 MG/ML VIAL IVP SCH (00:45)
[2020-05-21] MEDS ORDERED: Sodium Chloride 0.9% 50 ML ONE (02:52)
[2020-05-21] MEDS: Sodium Chloride 0.9% 1,000 ML IV SCH (03:17)
[2020-05-21] MEDS: Levothyroxine Sodium 25 MCG TAB PO SCH (05:53)
--- NOTE | 2020-05-21 09:09 | CT ---
CT HEAD WITHOUT CONTRAST: INDICATION: CVA. Left side weakness. COMPARISON: Comparison is made to recent CT head of 05/18/2016. FINDINGS: There is a new focus of lucency consistent with a rather prominent lacunar infarct involving the righ t basal ganglia and extending superiorly into the right periventricular white matter. This involves the lentiform nucleus posteriorly on the right and is new since the prior exam indicating the acute/s ubacute lacunar infarct. There is no evidence of hemorrhage. Ventricles remain normal size and position. Mild chronic ischemic white matter changes are again not ed. No midline shift or mass effect. IMPRESSION: New findings from prior exam indicating acute/subacute lacunar infarct involving the right basal gang neva and extending superiorly into the right periventricular white matter. POS: AGW
[2020-05-21] MEDS: Aspirin 81 mg Enteric Coated Tablet PO SCH (10:24)
[2020-05-21] MEDS: metFORMIN 500 MG TAB PO SCH (10:24)
[2020-05-21] MEDS ORDERED: Enoxaparin Sodium 40 MG/0.4 ML SYRINGE ONE (12:01)
[2020-05-21] MEDS ORDERED: HumaLOG 300 UNITS/3 ML VIAL ONE (12:02)
[2020-05-21] MEDS: Enoxaparin Sodium 40 MG/0.4 ML SYRINGE SC SCH (12:10)
[2020-05-21] MEDS: HumaLOG 300 UNITS/3 ML VIAL SC PRN ×2 (12:11→17:43)
--- NOTE | 2020-05-21 15:30 | PDOC.NEUPN ---
- Subjective Encounter Date: 05/21/20 Subjective: Mrs. Bartlett continues to have significant left-sided focal deficits - Objective Vital Signs & Weight: Vital Signs (12 hours) Temp Pulse Pulse Pulse Resp BP BP 05/21/20 12:48 97.4 F L 75 18 05/21/20 11:10 78 71 132/66 115/79 05/21/20 08:10 05/21/20 08:00 98.2 F 66 22 H BP Pulse Ox 05/21/20 12:48 136/69 95 05/21/20 11:10 05/21/20 08:10 99 05/21/20 08:00 133/83 99 Weight Admit Weight 286 lb Weight 286 lb 2.56 oz Result Diagrams: 05/19/20 05:20 05/19/20 05:20 Additional Labs: Accuchecks 05/21/20 05/21/20 05/20/20 11:49 06:32 20:57 POC Glucose 231 H 192 H 226 H 05/20/20 16:20 POC Glucose 262 H Radiology Reviewed by me: Yes EKG Reviewed by me: Yes ROS - Review of Systems Constitutional: denies: fever, chills, sweats, weakness, malaise, other Eyes: denies: pain, vision change, conjunctivae inflammation, eyelid inflammation, redness, other Respiratory: reports: cough Gastrointestinal: denies: nausea, vomiting, abdominal pain, diarrhea, constipation, melena, hematochezia, other Genitourinary: denies: dysuria, frequency, incontinence, hematuria, retention, other Musculoskeletal: denies: neck pain, shoulder pain, arm pain, back pain, hand pain, leg pain, foot pain, other Neurological: reports: weakness, numbness, incoordination, change in speech - Medication Medications: Active Medications Generic Name Dose Route Start Last Admin Trade Name Freq PRN Reason Stop Dose Admin Aspirin 81 mg 05/19/20 09:00 05/21/20 10:24 Aspirin 81 Mg Enteric Coated Tablet PO [address] [facility] Administration Atorvastatin Calcium 40 mg 05/19/20 21:00 05/20/20 22:28 Atorvastatin Calcium 40 Mg Tab PO Not Given HS TEGAN Enoxaparin Sodium 40 mg 05/19/20 09:00 05/21/20 12:10 Enoxaparin Sodium 40 Mg/0.4 Ml Syringe SC 40 mg 0900 TEGAN Administration Sodium Chloride 1,000 mls @ 75 mls/hr 05/19/20 16:15 05/21/20 03:17 Normal Saline 0.9% IV 1,000 mls .[id number] TEGAN Administration Insulin Human Lispro 0 units 05/19/20 02:23 05/21/20 12:11 Humalog 300 Units/3 Ml Vial SC 3 unit .MILD SLIDING SCALE PRN Administration Mild Correctional Scale Levothyroxine Sodium 25 mcg 05/21/20 06:00 05/21/20 05:53 Levothyroxine Sodium 25 Mcg Tab PO Not Given 0600 TEGAN Metformin HCl 1,000 mg 05/20/20 21:00 05/21/20 10:24 Metformin 500 Mg Tab PO 1,000 mg BID TEGAN Administration Ondansetron HCl 4 mg 05/19/20 01:22 05/21/20 06:58 Ondansetron Pf 4 Mg/2 Ml Vial IVP 4 mg Q6H PRN Administration Nausea/Vomiting Sodium Chloride 10 ml 05/19/20 01:22 05/19/20 03:31 Flush - Normal Saline 10 Ml Syringe IVF 10 ml PRN PRN Administration Saline Flush - Exam General Appearance: awake alert Eye: PERRL ENT: normocephalic atraumatic Neck: supple Respiratory: CTAB Cardiovascular: RRR Gastrointestinal: soft Extremities: no cyanosis Skin: normal turgor Neurological: facial droop, hemiplegia, speech deficit, vision deficit Neurological - other findings: Left-sided focal deficits Musculoskeletal: normal tone, no muscle wasting PSYCH: normal affect, normal behavior, A&O x 3 Results - Labs Result Diagrams: 05/19/20 05:20 05/19/20 05:20 Lab results: WBC 9.3 thou/uL (4.8-10.8) 05/19/20 05:20 Hgb 12.9 g/dL (12.0-16.0) 05/19/20 05:20 Hct 39.2 % (36.0-47.0) 05/19/20 05:20 MCV 84.7 fL (78.0-98.0) 05/19/20 05:20 Plt Count 177 thou/uL (130-400) 05/19/20 05:20 Neutrophils % 68.7 % (42.0-75.0) 05/19/20 05:20 Sodium 135 mmol/L (136-145) L 05/19/20 05:20 Potassium 4.0 mmol/L (3.5-5.1) 05/19/20 05:20 Chloride 98 mmol/L (98-107) 05/19/20 05:20 Carbon Dioxide 28 mmol/L (22-29) 05/19/20 05:20 BUN 13 mg/dL (9.8-20.1) 05/19/20 05:20 Creatinine 0.77 mg/dL (0.6-1.1) 05/19/20 05:20 Glucose 316 mg/dL (70-105) H 05/19/20 05:20 Calcium 9.6 mg/dL (7.8-10.44) 05/19/20 05:20 Total Bilirubin 0.5 mg/dL (0.2-1.2) 05/18/20 19:18 AST 11 U/L (5-34) 05/18/20 19:18 ALT 12 U/L (8-55) 05/18/20 19:18 Alkaline Phosphatase 134 U/L (40-110) H 05/18/20 19:18 Troponin I Less than 0.010 ng/mL (< 0.028) 05/18/20 19:18 B-Natriuretic Peptide Less than 10.0 pg/mL (0-100) 05/18/20 19:18 Serum Total Protein 7.8 g/dL (6.0-8.3) 05/18/20 19:18 Albumin 3.8 g/dL (3.5-5.0) 05/18/20 19:18 - Radiology Interpretation CT scan - head Additional Comment: Repeat head CT showed evidence of sub-acute infarction in the right basal ganglia extending into the right periventricular white matter PN A/P (1) Acute CVA (cerebrovascular accident) Code(s): I63.9 - CEREBRAL INFARCTION, UNSPECIFIED Status: Acute (2) Hypertension Code(s): I10 - ESSENTIAL (PRIMARY) HYPERTENSION Status: Acute (3) Hyperlipidemia Code(s): E78.5 - HYPERLIPIDEMIA, UNSPECIFIED Status: Acute (4) Diabetes Code(s): E11.9 - TYPE 2 DIABETES MELLITUS WITHOUT COMPLICATIONS Status: Acute - Plan Daily Plan: PT/OT, speech therapy, DVT proph w/SCDs Mrs. Bartlett is a 59-year-old female who presented with acute onset left-sided weakness. She was in the window for TPA but patient declined it. She continues to have significant left focal deficits. She has left facial droop and left hemiplegia. Repeat head CT showed evidence of subacute infarction in the right basal ganglia extending into the right very periventricular white matter. Neurochecks every [address] reviewed which was negative for acute intracranial pathology. CTA of the head and neck did not show hemodynamically significant stenosis. Telemetry to rule out arrhythmias. 2D echo showed ejection fraction 55 to 60%. No thrombus or PFO. Permissive control of blood pressure at this time. Strict control of blood glucose Continue aspirin and high intensity statin for secondary stroke prevention. PT/OT/speech. Continue medical management per primary team Plan discussed in detail with the patient.
--- NOTE | 2020-05-21 16:57 | PDOC.HOSPP ---
- Subjective Encounter Date: 05/21/20 Subjective: Patient reports she is doing fine. She is eating but being selective about the foods that she is eating to ensure that she can swallow them adequately. She tells me she will have significant family support to take care of her at home. - Objective Vital Signs & Weight: Vital Signs (12 hours) Temp Pulse Pulse Pulse Resp BP BP 05/21/20 12:48 97.4 F L 75 18 05/21/20 11:10 78 71 132/66 115/79 05/21/20 08:10 05/21/20 08:00 98.2 F 66 22 H BP Pulse Ox 05/21/20 12:48 136/69 95 05/21/20 11:10 05/21/20 08:10 99 05/21/20 08:00 133/83 99 Weight Admit Weight 286 lb Weight 286 lb 2.56 oz Result Diagrams: 05/19/20 05:20 05/19/20 05:20 Additional Labs: Accuchecks 05/21/20 05/21/20 05/20/20 11:49 06:32 20:57 POC Glucose 231 H 192 H 226 H Hospitalist ROS - Medication Medications: Active Medications Generic Name Dose Route Start Last Admin Trade Name Freq PRN Reason Stop Dose Admin Aspirin 81 mg 05/19/20 09:00 05/21/20 10:24 Aspirin 81 Mg Enteric Coated Tablet PO 81 mg DAILY TEGAN Administration Atorvastatin Calcium 40 mg 05/19/20 21:00 05/20/20 22:28 Atorvastatin Calcium 40 Mg Tab PO Not Given HS TEGAN Enoxaparin Sodium 40 mg 05/19/20 09:00 05/21/20 12:10 Enoxaparin Sodium 40 Mg/0.4 Ml Syringe SC 40 mg 0900 TEGAN Administration Sodium Chloride 1,000 mls @ 75 mls/hr 05/19/20 16:15 05/21/20 03:17 Normal Saline 0.9% IV 1,000 mls .[id number] TEGAN Administration Insulin Human Lispro 0 units 05/19/20 02:23 05/21/20 12:11 Humalog 300 Units/3 Ml Vial SC 3 unit .MILD SLIDING SCALE PRN Administration Mild Correctional Scale Levothyroxine Sodium 25 mcg 05/21/20 06:00 05/21/20 05:53 Levothyroxine Sodium 25 Mcg Tab PO Not Given 0600 [facility] Metformin HCl 1,000 mg 05/20/20 21:00 05/21/20 10:24 Metformin 500 Mg Tab PO 1,000 mg BID TEGAN Administration Ondansetron HCl 4 mg 05/19/20 01:22 05/21/20 06:58 Ondansetron Pf 4 Mg/2 Ml Vial IVP 4 mg Q6H PRN Administration Nausea/Vomiting Sodium Chloride 10 ml 05/19/20 01:22 05/19/20 03:31 Flush - Normal Saline 10 Ml Syringe IVF 10 ml PRN PRN Administration Saline Flush - Exam General Appearance: NAD, awake alert General - other findings: Left facial droop apparent. Heart: RRR, no murmur, no gallops, no rubs, normal peripheral pulses Respiratory: CTAB, no wheezes, no rales, no ronchi, normal chest expansion, no tachypnea, normal percussion Gastrointestinal: soft, non-tender, non-distended, normal bowel sounds, no palpable masses, no hepatomegaly, no splenomegaly, no bruit Extremities: no cyanosis, no clubbing, no edema Skin: normal turgor Neurological - other findings: Left hemiplegia. Complete today. Clear speech. Psychiatric: normal affect, normal behavior, A&O x 3 Hosp A/P (1) Acute CVA (cerebrovascular accident) Code(s): I63.9 - CEREBRAL INFARCTION, UNSPECIFIED Status: Acute (2) Diabetes Code(s): E11.9 - TYPE 2 DIABETES MELLITUS WITHOUT COMPLICATIONS Status: Acute (3) Hyperlipidemia Code(s): E78.5 - HYPERLIPIDEMIA, UNSPECIFIED Status: Acute (4) Hypertension Code(s): I10 - ESSENTIAL (PRIMARY) HYPERTENSION Status: Acute (5) Morbid obesity Code(s): E66.01 - MORBID (SEVERE) OBESITY DUE TO EXCESS CALORIES Status: Acute (6) Mass of left side of neck Code(s): R22.1 - LOCALIZED SWELLING, MASS AND LUMP, NECK Status: Acute - Plan Acute CVA with left hemiplegia: Initial CT negative. MRI not possible due to the patient's weight exceeding the limit. Repeat CT scan on 05/21/2020 revealed Acute/subacute lacunar infarct involving the right basal ganglia and extending superiorly into the right periventricular white matter. Continue aspirin, statin. PT OT, speech therapy. Neurology consult appreciated. Echocardiogram essentially unremarkable. CTA showing no significant stenosis. Left neck mass: Patient has a tender nodule at the inferior aspect of the left parotid/subauricular area. Based on the patient's description and the exam it is concerning for parotid duct obstruction/partial obstruction. Discussed with Dr. Sorensen. He assessed the patient as he was in the area. Recommended outpatient fine-needle aspiration. Hypertension: Continue with permissive hypertension. We will resume lisinopril soon. Diabetes mellitus: Continue with Accu-Cheks and sliding scale insulin. Will resume Metformin once her swallow has been cleared. Hypothyroidism: We will resume levothyroxine. Dysphagia: Patient had modified barium swallow with speech therapy. She is on regular diet with extra sauce/gravy and nectar thick liquids. Disposition: Discussed with case management. Due to the patient's Medicaid she will not be able to move to rehab or skilled. Unlikely that she will be able to get outpatient physical therapy or home health. Unfortunately no good options available to her at this time. She does feel like she will have adequate family support at home to care for her. I recommended that she have her family members come to the hospital to talk to the nurses and physical therapy to gain an understanding of what it will take to care for her when she does get home. She is amenable to that plan.
[2020-05-21] MEDS: Atorvastatin Calcium 40 MG TAB PO SCH (20:56)
[2020-05-21] MEDS ORDERED: Acetaminophen 500 MG TAB ONE (23:34)
[2020-05-21] MEDS ORDERED: Acetaminophen 500 MG TAB PO SCH (23:45)
[2020-05-22] MEDS: Sodium Chloride 0.9% 1,000 ML IV SCH (02:50)
[2020-05-22] MEDS: HumaLOG 300 UNITS/3 ML VIAL SC PRN ×3 (05:12→17:44)
[2020-05-22 05:27] LABS: #Eosinphils 0.1 thou/uL (0.0-0.7); #Lymphocytes 2.5 thou/uL (1.20-3.40); #Monocytes 0.7 thou/uL (0.11-0.59); #Neutrophils 5.5 thou/uL (1.40-6.50); %Basophils 0.5 % (0.0-1.0); %Eosinophils 1.3 % (0.0-10.0); %Lymphocytes 27.9 % (21.0-51.0); %Monocytes 7.4 % (0.0-10.0); %Neutrophils 62.9 % (42.0-75.0); Hemoglobin 12.6 g/dL (12.0-16.0); Mean Corpuscular HGB CONC 33.3 g/dL (32.0-36.0); Mean Corpuscular Hemoglobin 28.1 pg (27.0-31.0); Mean Corpuscular Volume 84.5 fL (78.0-98.0); Mean Platelet Volume 8.8 fL (7.4-10.4); Platelet Count 178 thou/uL (130-400); RBC Distribution Width 13.5 % (11.5-14.5); Red Blood Cell (RBC) Count 4.47 mill/uL (4.20-5.40); White Blood Cell (WBC) Count 8.8 thou/uL (4.8-10.8)
[2020-05-22] MEDS: Levothyroxine Sodium 25 MCG TAB PO SCH (05:36)
[2020-05-22 05:53] LABS: Anion Gap 12 mmol/L (10-20); BUN (Urea Nitrogen) 15 mg/dL (9.8-20.1); Calc. Creatinine Clearance 165 mL/min (70-130); Calcium 9.4 mg/dL (7.8-10.44); Carbon Dioxide 28 mmol/L (22-29); Chloride 100 mmol/L (98-107); Glucose 179 mg/dL (70-105); Potassium 3.8 mmol/L (3.5-5.1); Sodium 136 mmol/L (136-145)
[2020-05-22] MEDS ORDERED: Enoxaparin Sodium 40 MG/0.4 ML SYRINGE ONE (08:42)
[2020-05-22] MEDS: Aspirin 81 mg Enteric Coated Tablet PO SCH (08:43)
[2020-05-22] MEDS: metFORMIN 500 MG TAB PO SCH ×2 (08:44→17:44)
[2020-05-22] MEDS: Enoxaparin Sodium 40 MG/0.4 ML SYRINGE SC SCH (08:45)
--- NOTE | 2020-05-22 14:17 | PDOC.HOSPP ---
- Subjective Encounter Date: 05/22/20 Subjective: Patient continues to do well. She tells me that her family came appear to learn how to take care of her as we discussed. Nurses tell me that that was not accurate because they were not allowing family members to visit in the PACU patient area. - Objective Vital Signs & Weight: Vital Signs (12 hours) Temp Pulse Resp BP Pulse Ox 05/22/20 12:00 97.8 F 70 18 134/66 96 05/22/20 08:00 98 F 68 17 126/54 L 96 05/22/20 03:51 98.2 F 66 20 116/57 L 96 Weight Admit Weight 286 lb Weight 286 lb 2.56 oz I&O: 05/21/20 05/22/20 05/23/20 06:59 06:59 06:59 Intake Total 610 Balance 610 Result Diagrams: 05/22/20 05:05 05/22/20 05:05 Additional Labs: Accuchecks 05/22/20 05/22/20 05/21/20 11:40 05:05 20:55 POC Glucose 190 H 183 H 165 H 05/21/20 05/21/20 17:31 08:37 POC Glucose 210 H 202 H Hospitalist ROS - Medication Medications: Active Medications Generic Name Dose Route Start Last Admin Trade Name Freq PRN Reason Stop Dose Admin Aspirin 81 mg 05/19/20 09:00 05/22/20 08:43 Aspirin 81 Mg Enteric Coated Tablet PO 81 mg DAILY TEGAN Administration Atorvastatin Calcium 40 mg 05/19/20 21:00 05/21/20 20:56 Atorvastatin Calcium 40 Mg Tab PO 40 mg HS TEGAN Administration Enoxaparin Sodium 40 mg 05/19/20 09:00 05/22/20 08:45 Enoxaparin Sodium 40 Mg/0.4 Ml Syringe SC 40 mg 0900 TEGAN Administration Insulin Human Lispro 0 units 05/19/20 02:23 05/22/20 13:03 Humalog 300 Units/3 Ml Vial SC 2 unit .MILD SLIDING SCALE PRN Administration Mild Correctional Scale Levothyroxine Sodium 25 mcg 05/21/20 06:00 05/22/20 05:36 Levothyroxine Sodium 25 Mcg Tab PO 25 mcg 0600 TEGAN Administration Metformin HCl 1,000 mg 05/22/20 08:00 05/22/20 08:44 Metformin 500 Mg Tab PO 1,000 mg BID-WM TEGAN Administration Ondansetron HCl 4 mg 05/19/20 01:22 05/21/20 06:58 Ondansetron Pf 4 Mg/2 Ml Vial IVP 4 mg Q6H PRN Administration Nausea/Vomiting Sodium Chloride 10 ml 05/19/20 01:22 05/19/20 03:31 Flush - Normal Saline 10 Ml Syringe IVF 10 ml PRN PRN Administration Saline Flush - Exam General Appearance: NAD, awake alert General - other findings: Morbidly obese Heart: RRR, no murmur, no gallops, no rubs, normal peripheral pulses Respiratory: CTAB, no wheezes, no rales, no ronchi, normal chest expansion, no tachypnea, normal percussion Gastrointestinal: soft, non-tender, non-distended, normal bowel sounds, no palpable masses, no hepatomegaly Extremities: no cyanosis, no clubbing, no edema Skin: normal turgor Neurological - other findings: Left hemiplegia, facial droop. Clear speech. Normal cognition Psychiatric: normal affect, normal behavior, A&O x 3 Hosp A/P (1) Acute CVA (cerebrovascular accident) Code(s): I63.9 - CEREBRAL INFARCTION, UNSPECIFIED Status: Acute (2) Diabetes Code(s): E11.9 - TYPE 2 DIABETES MELLITUS WITHOUT COMPLICATIONS Status: Acute (3) Hyperlipidemia Code(s): E78.5 - HYPERLIPIDEMIA, UNSPECIFIED Status: Acute (4) Hypertension Code(s): I10 - ESSENTIAL (PRIMARY) HYPERTENSION Status: Acute (5) Morbid obesity Code(s): E66.01 - MORBID (SEVERE) OBESITY DUE TO EXCESS CALORIES Status: Acute (6) Mass of left side of neck Code(s): R22.1 - LOCALIZED SWELLING, MASS AND LUMP, NECK Status: Acute - Plan Acute CVA with left hemiplegia: Initial CT negative. MRI not possible due to the patient's weight exceeding the limit. Repeat CT scan on 05/21/2020 revealed Acute/subacute lacunar infarct involving the right basal ganglia and extending superiorly into the right periventricular white matter. Continue aspirin, statin. PT OT, speech therapy. Neurology consult appreciated. Echocardiogram essentially unremarkable. CTA showing no significant stenosis. Patient's left hemiplegia became dense and persistent. Left neck mass: Patient has a tender nodule at the inferior aspect of the left parotid/s ubauricular area. Based on the patient's description and the exam it is concerning for parotid duct obstruction/partial obstruction. CT scan indicated it was likely outside the parotid duct. Discussed with Dr. Sorensen. He assessed the patient as he was in the area. Recommended outpatient fine-needle aspiration. Hypertension: Continue with permissive hypertension. Did ultimately order resumption of the lisinopril on 05/22/2020. Diabetes mellitus: Continue with Accu-Cheks and sliding scale insulin. Resumed Metformin once her swallow was appropriate. Hypothyroidism: Continue with her home dose of levothyroxine. Dysphagia: Patient had modified barium swallow with speech therapy. She is on regular diet with extra sauce/gravy and nectar thick liquids. Disposition: Discussed with case management. Due to the patient's Medicaid she will not be able to move to rehab or skilled. Unlikely that she will be able to get outpatient physical therapy or home health. Unfortunately no good options available to her at this time. She does feel like she will have adequate family support at home to care for her. I recommended that she have her family members come to the hospital to talk to the nurses and physical therapy to gain an understanding of what it will take to care for her when she does get home. She was amenable to that plan, however, as the Covid visitation restrictions precluded that. On 05/22/2020 I was informed by nursing that [facility] was still working on the possibility of a gisela bed for this patient. The need for that is so great is worth keeping the patient here bit longer to see if we can work that out.
--- NOTE | 2020-05-22 15:16 | PDOC.NEUPN ---
- Subjective Encounter Date: 05/22/20 Subjective: No acute events in the last 24 hours. - Objective Vital Signs & Weight: Vital Signs (12 hours) Temp Pulse Resp BP Pulse Ox 05/22/20 12:00 97.8 F 70 18 134/66 96 05/22/20 08:00 98 F 68 17 126/54 L 96 05/22/20 03:51 98.2 F 66 20 116/57 L 96 Weight Admit Weight 286 lb Weight 286 lb 2.56 oz I&O: 05/21/20 05/22/20 05/23/20 06:59 06:59 06:59 Intake Total 610 Balance 610 Result Diagrams: 05/22/20 05:05 05/22/20 05:05 Additional Labs: Accuchecks 05/22/20 05/22/20 05/21/20 11:40 05:05 20:55 POC Glucose 190 H 183 H 165 H 05/21/20 05/21/20 17:31 08:37 POC Glucose 210 H 202 H Radiology Reviewed by me: Yes EKG Reviewed by me: Yes ROS - Review of Systems Constitutional: denies: fever, chills, sweats, weakness, malaise, other Eyes: denies: pain, vision change, conjunctivae inflammation, eyelid inflammation, redness, other Gastrointestinal: denies: nausea, vomiting, abdominal pain, diarrhea, constipation, melena, hematochezia, other Genitourinary: denies: dysuria, frequency, incontinence, hematuria, retention, other Musculoskeletal: denies: neck pain, shoulder pain, arm pain, back pain, hand pain, leg pain, foot pain, other Neurological: reports: weakness, numbness, incoordination - Medication Medications: Active Medications Generic Name Dose Route Start Last Admin Trade Name Freq PRN Reason Stop Dose Admin Aspirin 81 mg 05/19/20 09:00 05/22/20 08:43 Aspirin 81 Mg Enteric Coated Tablet PO 81 mg DAILY TEGAN Administration Atorvastatin Calcium 40 mg 05/19/20 21:00 05/21/20 20:56 Atorvastatin Calcium 40 Mg Tab PO 40 mg HS TEGAN Administration Enoxaparin Sodium 40 mg 05/19/20 09:00 05/22/20 08:45 Enoxaparin Sodium 40 Mg/0.4 Ml Syringe SC 40 mg 0900 TEGAN Administration Insulin Human Lispro 0 units 05/19/20 02:23 05/22/20 13:03 Humalog 300 Units/3 Ml Vial SC 2 unit .MILD SLIDING SCALE PRN Administration Mild Correctional Scale Levothyroxine Sodium 25 mcg 05/21/20 06:00 05/22/20 05:36 Levothyroxine Sodium 25 Mcg Tab PO 25 mcg 0600 TEGAN Administration Metformin HCl 1,000 mg 05/22/20 08:00 05/22/20 08:44 Metformin 500 Mg Tab PO 1,000 mg BID-WM TEGAN Administration Ondansetron HCl 4 mg 05/19/20 01:22 05/21/20 06:58 Ondansetron Pf 4 Mg/2 Ml Vial IVP 4 mg Q6H PRN Administration Nausea/Vomiting Sodium Chloride 10 ml 05/19/20 01:22 05/19/20 03:31 Flush - Normal Saline 10 Ml Syringe IVF 10 ml PRN PRN Administration Saline Flush - Exam General Appearance: awake alert Eye: PERRL ENT: normocephalic atraumatic Neck: supple Respiratory: CTAB Cardiovascular: RRR Gastrointestinal: soft Extremities: no cyanosis Skin: normal turgor Neurological: facial droop, hemiplegia, speech deficit Neurological - other findings: Left-sided focal deficits Musculoskeletal: normal tone, no muscle wasting PSYCH: normal affect, normal behavior, A&O x 3 Results - Labs Result Diagrams: 05/22/20 05:05 05/22/20 05:05 Lab results: WBC 8.8 thou/uL (4.8-10.8) 05/22/20 05:05 Hgb 12.6 g/dL (12.0-16.0) 05/22/20 05:05 Hct 37.7 % (36.0-47.0) 05/22/20 05:05 MCV 84.5 fL (78.0-98.0) 05/22/20 05:05 Plt Count 178 thou/uL (130-400) 05/22/20 05:05 Neutrophils % 62.9 % (42.0-75.0) 05/22/20 05:05 Sodium 136 mmol/L (136-145) 05/22/20 05:05 Potassium 3.8 mmol/L (3.5-5.1) 05/22/20 05:05 Chloride 100 mmol/L (98-107) 05/22/20 05:05 Carbon Dioxide 28 mmol/L (22-29) 05/22/20 05:05 BUN 15 mg/dL (9.8-20.1) 05/22/20 05:05 Creatinine 0.75 mg/dL (0.6-1.1) 05/22/20 05:05 Glucose 179 mg/dL (70-105) H 05/22/20 05:05 Calcium 9.4 mg/dL (7.8-10.44) 05/22/20 05:05 Total Bilirubin 0.5 mg/dL (0.2-1.2) 05/18/20 19:18 AST 11 U/L (5-34) 05/18/20 19:18 ALT 12 U/L (8-55) 05/18/20 19:18 Alkaline Phosphatase 134 U/L (40-110) H 05/18/20 19:18 Troponin I Less than 0.010 ng/mL (< 0.028) 05/18/20 19:18 B-Natriuretic Peptide Less than 10.0 pg/mL (0-100) 05/18/20 19:18 Serum Total Protein 7.8 g/dL (6.0-8.3) 05/18/20 19:18 Albumin 3.8 g/dL (3.5-5.0) 05/18/20 19:18 - Radiology Interpretation CT scan - head Additional Comment: MRI of the brain was consistent with acute infarction in the basal ganglia right PN A/P (1) Acute CVA (cerebrovascular accident) Code(s): I63.9 - CEREBRAL INFARCTION, UNSPECIFIED Status: Acute (2) Hypertension Code(s): I10 - ESSENTIAL (PRIMARY) HYPERTENSION Status: Acute (3) Hyperlipidemia Code(s): E78.5 - HYPERLIPIDEMIA, UNSPECIFIED Status: Acute (4) Diabetes Code(s): E11.9 - TYPE 2 DIABETES MELLITUS WITHOUT COMPLICATIONS Status: Acute - Plan Daily Plan: PT/OT, speech therapy, DVT proph w/SCDs Mrs. Bartlett is a 59-year-old female who presented with acute onset left-sided weakness. She was in the window for TPA but patient declined it. She continues to have significant left focal deficits. She has left facial droop and left hemiplegia. No acute events in the last [address] showed evidence of subacute lacunar infarction in the right basal ganglia extending into the right very periventricular white matter. Neurochecks every 4 hours. Consider EEG to rule out cortical irritability. Initial head CT reviewed which was negative for acute intracranial pathology. CTA of the head and neck did not show hemodynamically significant stenosis. Telemetry to rule out arrhythmias. 2D echo showed ejection fraction 55 to 60%. No thrombus or PFO. Permissive control of blood pressure at this time. Strict control of blood glucose Continue aspirin and high intensity statin for secondary stroke prevention. PT/OT/speech. Continue medical management per primary team Case management on board regarding discharge planning . Plan discussed in detail with the patient and the nursing staff.
[2020-05-22] MEDS: Atorvastatin Calcium 40 MG TAB PO SCH (21:55)
--- NOTE | 2020-05-22 22:38 | PDOC.EEG ---
Neurology EEG Report - Report Report: This EEG was performed using 24 channel [employer] video EEG machine with 24 disc timi ctrodes. This was an extended 2 hours 6 minutes of inpatient video EEG recording. Digital analysis of the EEG was done for spike and seizure detection which revealed no abnormalities. Background: There is a nonsustained posterior background rhythm of 8.5 -9 Hz. EEG with excessive beta activity intermixed with the background. Hyperventilation: Not performed. Photic Stimulation: No significant response. Sleep: No stage change is observed. EEG Diagnosis: Rare irregular theta activity seen during the reording. Nonsustained posterior background rhythm. Clinical Interpretation: This EEG is consistent with mild generalized nonspecific cerebral dysfunction.
[2020-05-23] MEDS: Levothyroxine Sodium 25 MCG TAB PO SCH (05:38)
[2020-05-23] MEDS: Aspirin 81 mg Enteric Coated Tablet PO SCH (11:02)
[2020-05-23] MEDS: Fluticasone Propionate Nasal Spray 16 gm Bottle NASAL SCH (11:03)
[2020-05-23] MEDS: metFORMIN 500 MG TAB PO SCH ×2 (11:03→16:52)
[2020-05-23] MEDS: Enoxaparin Sodium 40 MG/0.4 ML SYRINGE SC SCH (11:05)
[2020-05-23] MEDS: HumaLOG 300 UNITS/3 ML VIAL SC PRN ×2 (13:00→16:51)
--- NOTE | 2020-05-23 16:50 | RAD ---
PORTABLE CHEST: 05/23/20 HISTORY: Diminished breath sounds. COMPARISON: 08/21/18 study. Heart size and mediastinum are within normal limits. The lungs appear clear of any definite infiltrat tristan process. IMPRESSION: No active intrathoracic disease. POS: [id number]
[2020-05-23] MEDS: Atorvastatin Calcium 40 MG TAB PO SCH (20:53)
--- NOTE | 2020-05-23 21:03 | PDOC.HOSPP ---
- Subjective Encounter Date: 05/23/20 Encounter Time: 20:45 Subjective: f/u s/p CVA with L hemiplegia/facial droop/dysarthria and dysphagia. Had a choking episode with dinner the night before but tolerated modified diet with nectar thick liquids today. - Objective Vital Signs & Weight: Vital Signs (12 hours) Temp Pulse Resp BP Pulse Ox 05/23/20 20:50 98.8 F 77 20 139/66 98 05/23/20 15:17 98.7 F 69 20 110/54 L 95 05/23/20 11:08 98.7 F 70 20 141/73 H 96 Weight Admit Weight 286 lb Weight 286 lb 2.56 oz I&O: 05/22/20 05/23/20 05/24/20 06:59 06:59 06:59 Intake Total 610 720 Balance 610 720 Result Diagrams: 05/22/20 05:05 05/22/20 05:05 Additional Labs: Accuchecks 05/23/20 05/23/20 16:30 10:35 POC Glucose 173 H 196 H Radiology Reviewed by me: Yes (CT brain - acute/subacute lacunar infarcts R basal ganglia with extension) Hospitalist ROS - Medication Medications: Active Medications Generic Name Dose Route Start Last Admin Trade Name Freq PRN Reason Stop Dose Admin Albuterol/Ipratropium 3 ml 05/23/20 18:30 05/23/20 20:13 Ipratropium/Albuterol Sulfate 3 Ml Neb NEB Not Given [id number] TEGAN Aspirin 81 mg 05/19/20 09:00 05/23/20 11:02 Aspirin 81 Mg Enteric Coated Tablet PO 81 mg DAILY TEGAN Administration Atorvastatin Calcium 40 mg 05/19/20 21:00 05/23/20 20:53 Atorvastatin Calcium 40 Mg Tab PO 40 mg HS TEGAN Administration Enoxaparin Sodium 40 mg 05/19/20 09:00 05/23/20 11:05 Enoxaparin Sodium 40 Mg/0.4 Ml Syringe SC 40 mg 0900 TEGAN Administration Fluticasone Propionate 0 gm 05/23/20 09:00 05/23/20 11:03 Fluticasone Propionate Nasal [place] 16 Gm Bottle NASAL 1 spr DAILY TEGAN Administration Insulin Human Lispro 0 units 05/19/20 02:23 05/23/20 16:51 Humalog 300 Units/3 Ml Vial SC 2 unit .MILD SLIDING SCALE PRN Administration Mild Correctional Scale Levothyroxine Sodium 25 mcg 05/21/20 06:00 05/23/20 05:38 Levothyroxine Sodium 25 Mcg Tab PO 25 mcg 0600 TEGAN Administration Metformin HCl 1,000 mg 05/22/20 08:00 05/23/20 16:52 Metformin 500 Mg Tab PO 1,000 mg BID-WM TEGAN Administration Ondansetron HCl 4 mg 05/19/20 01:22 05/21/20 06:58 Ondansetron Pf 4 Mg/2 Ml Vial IVP 4 mg Q6H PRN Administration Nausea/Vomiting Sodium Chloride 10 ml 05/19/20 01:22 05/22/20 21:55 Flush - Normal Saline 10 Ml Syringe IVF 10 ml PRN PRN Administration Saline Flush - Exam General Appearance: NAD, awake alert Eye: PERRL, anicteric sclera ENT: normocephalic atraumatic, no oropharyngeal lesions Neck: supple, symmetric, no JVD, no thyromegaly, no lymphadenopathy Heart: RRR, no gallops, no rubs, normal peripheral pulses Heart - other findings: S1, S2 Respiratory: CTAB, no wheezes, no rales, no ronchi, no tachypnea Gastrointestinal: soft, non-tender, non-distended, normal bowel sounds Gastrointestinal - other findings: obese Extremities: no cyanosis, no clubbing, no edema Skin: normal turgor, no lesions Neurological - other findings: L hemiplegia, dysarthria, dysphagia Musculoskeletal: normal tone, generalized weakness Psychiatric: normal affect, A&O x 3 Hosp A/P (1) Acute CVA (cerebrovascular accident) Code(s): I63.9 - CEREBRAL INFARCTION, UNSPECIFIED Status: Acute Plan: R basal ganglia lacunar infarct, continue ASA/Lipitor, routine stroke protocol, modified diet with nectar thick liquids (2) Diabetes Code(s): E11.9 - TYPE 2 DIABETES MELLITUS WITHOUT COMPLICATIONS Status: Chronic Qualifiers: Diabetes mellitus type: type 2 Plan: ISS, continue Metformin, ADA (3) Hyperlipidemia Code(s): E78.5 - HYPERLIPIDEMIA, UNSPECIFIED Status: Chronic Plan: Continue Lipitor (4) Hypertension Code(s): I10 - ESSENTIAL (PRIMARY) HYPERTENSION Status: Chronic Qualifiers: Hypertension type: essential hypertension Qualified Code(s): I10 - Essential (primary) hypertension Plan: Resume Lisinopril 5mg daily (5) Morbid obesity Code(s): E66.01 - MORBID (SEVERE) OBESITY DUE TO EXCESS CALORIES Status: Chronic Plan: Weight loss strategy, outpt follow up, low-fat diet - Plan PT/OT, public health social worker, speech therapy, respiratory therapy, DVT proph w/SCDs Stable overall Continue routine stroke protocol Continue ASA/Lipitor CM for assistance with potential [facility] bed May need to return home with family
[2020-05-24] MEDS: Levothyroxine Sodium 25 MCG TAB PO SCH (05:50)
[2020-05-24] MEDS: HumaLOG 300 UNITS/3 ML VIAL SC PRN ×3 (05:57→17:16)
[2020-05-24] MEDS: Enoxaparin Sodium 40 MG/0.4 ML SYRINGE SC SCH (08:38)
[2020-05-24] MEDS: Lisinopril 5 MG TAB PO SCH (08:39)
[2020-05-24] MEDS: metFORMIN 500 MG TAB PO SCH ×2 (08:39→17:16)
[2020-05-24] MEDS: Aspirin 81 mg Enteric Coated Tablet PO SCH (08:39)
[2020-05-24] MEDS: Fluticasone Propionate Nasal Spray 16 gm Bottle NASAL SCH (08:45)
--- NOTE | 2020-05-24 16:18 | PDOC.HOSPP ---
- Subjective Encounter Date: 05/24/20 Encounter Time: 16:00 Subjective: f/u s/p CVA with L hemiparesis/dysarthria overall feeling better. Awaiting decision on potential [facility] bed at rehab. - Objective Vital Signs & Weight: Vital Signs (12 hours) Temp Pulse Resp BP Pulse Ox 05/24/20 16:06 75 18 95 05/24/20 11:26 98.4 F 75 20 144/63 H 100 05/24/20 10:12 94 20 97 05/24/20 08:32 98.2 F 74 18 159/66 H 97 Weight Admit Weight 286 lb Weight 286 lb 2.56 oz I&O: 05/23/20 05/24/20 05/25/20 06:59 06:59 06:59 Intake Total 820 Balance 820 Result Diagrams: 05/22/20 05:05 05/22/20 05:05 Additional Labs: Accuchecks 05/24/20 05/24/20 05/23/20 10:37 05:45 21:20 POC Glucose 168 H 157 H 147 H 05/23/20 16:30 POC Glucose 173 H Radiology Reviewed by me: Yes (PCXR - no acute process) Hospitalist ROS - Medication Medications: Active Medications Generic Name Dose Route Start Last Admin Trade Name Freq PRN Reason Stop Dose Admin Albuterol/Ipratropium 3 ml 05/23/20 18:30 05/24/20 16:06 Ipratropium/Albuterol Sulfate 3 Ml Neb NEB 3 ml [id number] TEGAN Administration Aspirin 81 mg 05/19/20 09:00 05/24/20 08:39 Aspirin 81 Mg Enteric Coated Tablet PO 81 mg DAILY TEGAN Administration Atorvastatin Calcium 40 mg 05/19/20 21:00 05/23/20 20:53 Atorvastatin Calcium 40 Mg Tab PO 40 mg HS TEGAN Administration Enoxaparin Sodium 40 mg 05/19/20 09:00 05/24/20 08:38 Enoxaparin Sodium 40 Mg/0.4 Ml Syringe SC 40 mg 0900 TEGAN Administration Fluticasone Propionate 0 gm 05/23/20 09:00 05/24/20 08:45 Fluticasone Propionate Nasal [place] 16 Gm Bottle NASAL 2 spr DAILY TEGAN Administration Insulin Human Lispro 0 units 05/19/20 02:23 05/24/20 12:57 Humalog 300 Units/3 Ml Vial SC 2 unit .MILD SLIDING SCALE PRN Administration Mild Correctional Scale Levothyroxine Sodium 25 mcg 05/21/20 06:00 05/24/20 05:50 Levothyroxine Sodium 25 Mcg Tab PO 25 mcg 0600 TEGAN Administration Lisinopril 5 mg 05/24/20 09:00 05/24/20 08:39 Lisinopril 5 Mg Tab PO 5 mg DAILY TEGAN Administration Metformin HCl 1,000 mg 05/22/20 08:00 05/24/20 08:39 Metformin 500 Mg Tab PO 1,000 mg BID-WM TEGAN Administration Ondansetron HCl 4 mg 05/19/20 01:22 05/21/20 06:58 Ondansetron Pf 4 Mg/2 Ml Vial IVP 4 mg Q6H PRN Administration Nausea/Vomiting Sodium Chloride 10 ml 05/19/20 01:22 05/24/20 08:38 Flush - Normal Saline 10 Ml Syringe IVF 10 ml PRN PRN Administration Saline Flush - Exam General Appearance: NAD, awake alert Eye: PERRL, anicteric sclera ENT: normocephalic atraumatic, no oropharyngeal lesions Neck: supple, symmetric, no JVD, no thyromegaly, no lymphadenopathy Heart: RRR, no gallops, no rubs, normal peripheral pulses Heart - other findings: S1, S2 Respiratory: CTAB, no wheezes, no rales, no ronchi, normal chest expansion, no tachypnea Gastrointestinal: soft, non-tender, non-distended, normal bowel sounds, no palp able masses Gastrointestinal - other findings: obese Extremities: no cyanosis, no clubbing, no edema Skin: normal turgor, no lesions Neurological - other findings: L facial droop, L hemiparesis, dysarthria Musculoskeletal: normal tone, generalized weakness Psychiatric: normal affect, A&O x 3 Hosp A/P (1) Acute CVA (cerebrovascular accident) Code(s): I63.9 - CEREBRAL INFARCTION, UNSPECIFIED Status: Acute Plan: Continue ASA/Lipitor, general stroke protocol, await potential rehab bed, OOB with PT (2) Diabetes Code(s): E11.9 - TYPE 2 DIABETES MELLITUS WITHOUT COMPLICATIONS Status: Chronic Qualifiers: Diabetes mellitus type: type 2 Plan: ISS, Metformin, ADA (3) Hyperlipidemia Code(s): E78.5 - HYPERLIPIDEMIA, UNSPECIFIED Status: Chronic Plan: Continue Lipitor (4) Hypertension Code(s): I10 - ESSENTIAL (PRIMARY) HYPERTENSION Status: Chronic Qualifiers: Hypertension type: essential hypertension Qualified Code(s): I10 - Essential (primary) hypertension Plan: Continue Lisinopril, titrate to optimal clinical response (5) Morbid obesity Code(s): E66.01 - MORBID (SEVERE) OBESITY DUE TO EXCESS CALORIES Status: Chronic - Plan PT/OT, social insurance analyst, speech therapy, respiratory therapy, out of bed/ambulate, DVT proph w/SCDs Stable overall Continue routine stroke protocol Continue ASA/Lipitor CM for assistance with potential [facility] bed May need to return home with family OOB with PT Monitor for aspiration
[2020-05-24] MEDS: Atorvastatin Calcium 40 MG TAB PO SCH (21:01)
[2020-05-25] MEDS: Ondansetron PF 4 MG/2 ML Vial IVP PRN (02:07)
[2020-05-25] MEDS: HumaLOG 300 UNITS/3 ML VIAL SC PRN ×3 (05:49→17:44)
[2020-05-25] MEDS: Levothyroxine Sodium 25 MCG TAB PO SCH (06:16)
[2020-05-25] MEDS: Lisinopril 5 MG TAB PO SCH (10:22)
[2020-05-25] MEDS: metFORMIN 500 MG TAB PO SCH ×2 (10:23→16:05)
[2020-05-25] MEDS: Enoxaparin Sodium 40 MG/0.4 ML SYRINGE SC SCH (10:23)
[2020-05-25] MEDS: Aspirin 81 mg Enteric Coated Tablet PO SCH (10:23)
[2020-05-25] MEDS: Fluticasone Propionate Nasal Spray 16 gm Bottle NASAL SCH (10:23)
--- NOTE | 2020-05-25 14:35 | PDOC.NEUPN ---
- Subjective Encounter Date: 05/25/20 Subjective: No acute events in the last 24 hours. Patient does complain of discharge from the left eye. - Objective Vital Signs & Weight: Vital Signs (12 hours) Temp Pulse Resp BP Pulse Ox 05/25/20 14:04 76 16 05/25/20 11:43 98.6 F 86 20 135/62 95 05/25/20 10:45 76 16 05/25/20 08:00 97 05/25/20 07:56 98.4 F 76 24 H 113/58 L 97 05/25/20 04:00 98.1 F 79 16 129/61 97 05/25/20 02:47 86 20 97 Weight Admit Weight 286 lb Weight 286 lb 2.56 oz I&O: 05/24/20 05/25/20 05/26/20 06:59 06:59 06:59 Intake Total 820 609 Balance 820 609 Result Diagrams: 05/22/20 05:05 05/22/20 05:05 Additional Labs: Accuchecks 05/25/20 05/25/20 05/24/20 10:48 05:15 21:45 POC Glucose 165 H 164 H 192 H 05/24/20 05/23/20 05/22/20 17:10 06:37 16:54 POC Glucose 160 H 196 H 165 H Radiology Reviewed by me: Yes EKG Reviewed by me: Yes ROS - Review of Systems Constitutional: denies: fever, chills, sweats, weakness, malaise, other Eyes: denies: pain, vision change, conjunctivae inflammation, eyelid inflammation, redness, other ENT: denies: ear pain, ear discharge, nose pain, nose discharge, nose congestion, mouth pain, mouth swelling, throat pain, throat swelling, other Gastrointestinal: denies: nausea, vomiting, abdominal pain, diarrhea, constipation, melena, hematochezia, other Neurological: reports: weakness, numbness, incoordination, change in speech. denies: confusion, seizures, other - Medication Medications: Active Medications Generic Name Dose Route Start Last Admin Trade Name Freq PRN Reason Stop Dose Admin Albuterol/Ipratropium 3 ml 05/23/20 18:30 05/25/20 14:04 Ipratropium/Albuterol Sulfate 3 Ml Neb NEB 3 ml [id number] TEGAN Administration Aspirin 81 mg 05/19/20 09:00 05/25/20 10:23 Aspirin 81 Mg Enteric Coated Tablet PO 81 mg DAILY [facility] Administration Atorvastatin Calcium 40 mg 05/19/20 21:00 05/24/20 21:01 Atorvastatin Calcium 40 Mg Tab PO 40 mg HS [facility] Administration Enoxaparin Sodium 40 mg 05/19/20 09:00 05/25/20 10:23 Enoxaparin Sodium 40 Mg/0.4 Ml Syringe SC 40 mg 0900 [facility] Administration Fluticasone Propionate 0 gm 05/23/20 09:00 05/25/20 10:23 Fluticasone Propionate Nasal [place] 16 Gm Bottle NASAL 1 spr DAILY [facility] Administration Insulin Human Lispro 0 units 05/19/20 02:23 05/25/20 13:09 Humalog 300 Units/3 Ml Vial SC 2 unit .MILD SLIDING SCALE PRN Administration Mild Correctional Scale Levothyroxine Sodium 25 mcg 05/21/20 06:00 05/25/20 06:16 Levothyroxine Sodium 25 Mcg Tab PO 25 mcg 0600 [facility] Administration Lisinopril 5 mg 05/24/20 09:00 05/25/20 10:22 Lisinopril 5 Mg Tab PO 5 mg DAILY [facility] Administration Metformin HCl 1,000 mg 05/22/20 08:00 05/25/20 10:23 Metformin 500 Mg Tab PO Not Given BID-[facility] Ondansetron HCl 4 mg 05/19/20 01:22 05/25/20 02:07 Ondansetron Pf 4 Mg/2 Ml Vial IVP 4 mg Q6H PRN Administration Nausea/Vomiting Sodium Chloride 10 ml 05/19/20 01:22 05/24/20 08:38 Flush - Normal Saline 10 Ml Syringe IVF 10 ml PRN PRN Administration Saline Flush - Exam General Appearance: awake alert Eye: PERRL ENT: normocephalic atraumatic Neck: supple Respiratory: CTAB Cardiovascular: no murmur Gastrointestinal: soft Extremities: no cyanosis Skin: normal turgor Neurological: no new deficit, facial droop, hemiplegia, speech deficit Musculoskeletal: normal tone, no muscle wasting PSYCH: normal affect, normal behavior, A&O x 3, oriented to person, oriented to place, oriented to time Results - Labs Result Diagrams: 05/22/20 05:05 05/22/20 05:05 Lab results: WBC 8.8 thou/uL (4.8-10.8) 05/22/20 05:05 Hgb 12.6 g/dL (12.0-16.0) 05/22/20 05:05 Hct 37.7 % (36.0-47.0) 05/22/20 05:05 MCV 84.5 fL (78.0-98.0) 05/22/20 05:05 Plt Count 178 thou/uL (130-400) 05/22/20 05:05 Neutrophils % 62.9 % (42.0-75.0) 05/22/20 05:05 Sodium 136 mmol/L (136-145) 05/22/20 05:05 Potassium 3.8 mmol/L (3.5-5.1) 05/22/20 05:05 Chloride 100 mmol/L (98-107) 05/22/20 05:05 Carbon Dioxide 28 mmol/L (22-29) 05/22/20 05:05 BUN 15 mg/dL (9.8-20.1) 05/22/20 05:05 Creatinine 0.75 mg/dL (0.6-1.1) 05/22/20 05:05 Glucose 179 mg/dL (70-105) H 05/22/20 05:05 Calcium 9.4 mg/dL (7.8-10.44) 05/22/20 05:05 Total Bilirubin 0.5 mg/dL (0.2-1.2) 05/18/20 19:18 AST 11 U/L (5-34) 05/18/20 19:18 ALT 12 U/L (8-55) 05/18/20 19:18 Alkaline Phosphatase 134 U/L (40-110) H 05/18/20 19:18 Troponin I Less than 0.010 ng/mL (< 0.028) 05/18/20 19:18 B-Natriuretic Peptide Less than 10.0 pg/mL (0-100) 05/18/20 19:18 Serum Total Protein 7.8 g/dL (6.0-8.3) 05/18/20 19:18 Albumin 3.8 g/dL (3.5-5.0) 05/18/20 19:18 - Radiology Interpretation MRI - head Additional Comment: MRI of the brain not done due to weight limit CT scan - head Additional Comment: Repeat head CT showed lacunar infarction in the right basal ganglia extending to the right periventricular region PN A/P (1) Acute CVA (cerebrovascular accident) Code(s): I63.9 - CEREBRAL INFARCTION, UNSPECIFIED Status: Acute (2) Hypertension Code(s): I10 - ESSENTIAL (PRIMARY) HYPERTENSION Status: Chronic Qualifiers: Hypertension type: essential hypertension Qualified Code(s): I10 - Essential (primary) hypertension (3) Hyperlipidemia Code(s): E78.5 - HYPERLIPIDEMIA, UNSPECIFIED Status: Chronic (4) Diabetes Code(s): E11.9 - TYPE 2 DIABETES MELLITUS WITHOUT COMPLICATIONS Status: Chronic Qualifiers: Diabetes mellitus type: type 2 - Plan Daily Plan: PT/OT, speech therapy, DVT proph w/SCDs Mrs. Bartlett is a 59-year-old female who presented with acute onset left-sided weakness. She was in the window for TPA but patient declined it. She continues to have significant left focal deficits. She has left facial droop and left hemiplegia. No acute events in the last 24 hours. She does complain of discharge from the left eye. Repeat head CT 48 hours after symptom onset showed evidence of subacute lacunar infarction in the right basal ganglia extending into the right very periventricular white matter. Neurochecks every 4 hours. EEG to rule out cortical irritability is negative for seizure activity. Initial head CT reviewed which was negative for acute intracranial pathology. CTA of the head and neck did not show hemodynamically significant stenosis. Telemetry to rule out arrhythmias. 2D echo showed ejection fraction 55 to 60%. No thrombus or PFO. Permissive control of blood pressure at this time. Strict control of blood glucose Continue aspirin and high intensity statin for secondary stroke prevention. PT/OT/speech. Continue medical management per primary team Case management on board regarding discharge planning . Awaiting rehab placement Plan discussed in detail with the patient and the nursing staff.
--- NOTE | 2020-05-25 15:31 | PDOC.HOSPP ---
- Subjective Encounter Date: 05/25/20 Encounter Time: 15:25 Subjective: f/u s/p CVA with L hemiparesis/dysarthria receiving ASA/Lipitor. Awaiting approval for rehab bed. - Objective Vital Signs & Weight: Vital Signs (12 hours) Temp Pulse Resp BP Pulse Ox 05/25/20 14:04 76 16 05/25/20 11:43 98.6 F 86 20 135/62 95 05/25/20 10:45 76 16 05/25/20 08:00 97 05/25/20 07:56 98.4 F 76 24 H 113/58 L 97 05/25/20 04:00 98.1 F 79 16 129/61 97 Weight Admit Weight 286 lb Weight 286 lb 2.56 oz I&O: 05/24/20 05/25/20 05/26/20 06:59 06:59 06:59 Intake Total 820 609 Balance 820 609 Result Diagrams: 05/22/20 05:05 05/22/20 05:05 Additional Labs: Accuchecks 05/25/20 05/25/20 05/24/20 10:48 05:15 21:45 POC Glucose 165 H 164 H 192 H 05/24/20 05/23/20 05/22/20 17:10 06:37 16:54 POC Glucose 160 H 196 H 165 H Hospitalist ROS - Medication Medications: Active Medications Generic Name Dose Route Start Last Admin Trade Name Freq PRN Reason Stop Dose Admin Albuterol/Ipratropium 3 ml 05/23/20 18:30 05/25/20 14:04 Ipratropium/Albuterol Sulfate 3 Ml Neb NEB 3 ml [id number] TEGAN Administration Aspirin 81 mg 05/19/20 09:00 05/25/20 10:23 Aspirin 81 Mg Enteric Coated Tablet PO 81 mg DAILY TEGAN Administration Atorvastatin Calcium 40 mg 05/19/20 21:00 05/24/20 21:01 Atorvastatin Calcium 40 Mg Tab PO 40 mg HS TEGAN Administration Enoxaparin Sodium 40 mg 05/19/20 09:00 05/25/20 10:23 Enoxaparin Sodium 40 Mg/0.4 Ml Syringe SC 40 mg 0900 TEGAN Administration Fluticasone Propionate 0 gm 05/23/20 09:00 05/25/20 10:23 Fluticasone Propionate Nasal [place] 16 Gm Bottle NASAL 1 spr DAILY TEGAN Administration Insulin Human Lispro 0 units 05/19/20 02:23 05/25/20 13:09 Humalog 300 Units/3 Ml Vial SC 2 unit .MILD SLIDING SCALE PRN Administration Mild Correctional Scale Levothyroxine Sodium 25 mcg 05/21/20 06:00 05/25/20 06:16 Levothyroxine Sodium 25 Mcg Tab PO 25 mcg 0600 TEGAN Administration Lisinopril 5 mg 05/24/20 09:00 05/25/20 10:22 Lisinopril 5 Mg Tab PO 5 mg DAILY TEGAN Administration Metformin HCl 1,000 mg 05/22/20 08:00 05/25/20 10:23 Metformin 500 Mg Tab PO Not Given BID-WM TEGAN Ondansetron HCl 4 mg 05/19/20 01:22 05/25/20 02:07 Ondansetron Pf 4 Mg/2 Ml Vial IVP 4 mg Q6H PRN Administration Nausea/Vomiting Sodium Chloride 10 ml 05/19/20 01:22 05/24/20 08:38 Flush - Normal Saline 10 Ml Syringe IVF 10 ml PRN PRN Administration Saline Flush - Exam General Appearance: NAD, awake alert Eye: PERRL, anicteric sclera ENT: normocephalic atraumatic, no oropharyngeal lesions Neck: supple, symmetric, no JVD, no thyromegaly, no lymphadenopathy Heart: RRR, no gallops, no rubs, normal peripheral pulses Heart - other findings: S1, S2 Respiratory: CTAB, no wheezes, no rales, no ronchi, normal chest expansion, no tachypnea Gastrointestinal: soft, non-tender, non-distended, normal bowel sounds, no palpa ble masses Gastrointestinal - other findings: obese Extremities: no cyanosis, no clubbing, no edema Skin: normal turgor, no lesions Neurological: facial droop Neurological - other findings: dysarthria/L hemiplegia Musculoskeletal: normal tone, generalized weakness Psychiatric: normal affect, A&O x 3 Hosp A/P (1) Acute CVA (cerebrovascular accident) Code(s): I63.9 - CEREBRAL INFARCTION, UNSPECIFIED Status: Acute Plan: Continue routine med mgmt, ASA/Lipitor, general stroke protocol (2) Diabetes Code(s): E11.9 - TYPE 2 DIABETES MELLITUS WITHOUT COMPLICATIONS Status: Chronic Qualifiers: Diabetes mellitus type: type 2 (3) Hyperlipidemia Code(s): E78.5 - HYPERLIPIDEMIA, UNSPECIFIED Status: Chronic (4) Hypertension Code(s): I10 - ESSENTIAL (PRIMARY) HYPERTENSION Status: Chronic Qualifiers: Hypertension type: essential hypertension Qualified Code(s): I10 - Essential (primary) hypertension (5) Morbid obesity Code(s): E66.01 - MORBID (SEVERE) OBESITY DUE TO EXCESS CALORIES Status: Chronic - Plan 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
[2020-05-25] MEDS: Acetaminophen 500 MG TAB PO PRN (16:05)
[2020-05-25] MEDS: Atorvastatin Calcium 40 MG TAB PO SCH (20:23)
[2020-05-26] MEDS: Levothyroxine Sodium 25 MCG TAB PO SCH (05:25)
[2020-05-26] MEDS: Lisinopril 5 MG TAB PO SCH (08:41)
[2020-05-26] MEDS: Aspirin 81 mg Enteric Coated Tablet PO SCH (08:41)
[2020-05-26] MEDS: metFORMIN 500 MG TAB PO SCH ×2 (08:41→16:58)
[2020-05-26] MEDS: Fluticasone Propionate Nasal Spray 16 gm Bottle NASAL SCH (08:42)
[2020-05-26] MEDS: Enoxaparin Sodium 40 MG/0.4 ML SYRINGE SC SCH (08:42)
[2020-05-26] MEDS: HumaLOG 300 UNITS/3 ML VIAL SC PRN ×2 (12:04→16:58)
--- NOTE | 2020-05-26 13:05 | PDOC.NEUPN ---
- Subjective Encounter Date: 05/26/20 Subjective: Mrs. Bartlett is sitting up in chair and looking better but still has significant left hemiplegia. - Objective Vital Signs & Weight: Vital Signs (12 hours) Temp Pulse Resp BP BP Pulse Ox 05/26/20 11:59 98.2 F 78 20 136/61 98 05/26/20 08:41 84 05/26/20 08:25 84 18 96 05/26/20 07:52 98.5 F 79 20 121/59 L 96 05/26/20 04:00 98.5 F 77 16 135/62 96 05/26/20 03:45 95 Weight Admit Weight 286 lb Weight 286 lb 2.56 oz I&O: 05/25/20 05/26/20 05/27/20 06:59 06:59 06:59 Intake Total 609 Balance 609 Result Diagrams: 05/22/20 05:05 05/22/20 05:05 Additional Labs: Accuchecks 05/26/20 05/26/20 05/25/20 10:54 05:31 20:33 POC Glucose 196 H 143 H 159 H 05/25/20 16:35 POC Glucose 191 H Radiology Reviewed by me: Yes EKG Reviewed by me: Yes ROS - Review of Systems Constitutional: denies: fever, chills, sweats, weakness, malaise, other Eyes: denies: pain, vision change, conjunctivae inflammation, eyelid inflammation, redness, other Respiratory: denies: cough, dry, shortness of breath, hemoptysis, SOB with excertion, pleuritic pain, sputum, wheezing, other Gastrointestinal: denies: nausea, vomiting, abdominal pain, diarrhea, constipation, melena, hematochezia, other Genitourinary: denies: dysuria, frequency, incontinence, hematuria, retention, other Musculoskeletal: denies: neck pain, shoulder pain, arm pain, back pain, hand pain, leg pain, foot pain, other Neurological: reports: weakness, numbness, incoordination, change in speech - Medication Medications: Active Medications Generic Name Dose Route Start Last Admin Trade Name Freq PRN Reason Stop Dose Admin Acetaminophen 1,000 mg 05/25/20 14:56 05/25/20 16:05 Acetaminophen 500 Mg Tab PO 1,000 mg Q6H PRN Administration Headache/Fever or Pain Albuterol/Ipratropium 3 ml 05/23/20 18:30 05/26/20 13:03 Ipratropium/Albuterol Sulfate 3 Ml Neb NEB Not Given [id number] TEGAN Aspirin 81 mg 05/19/20 09:00 05/26/20 08:41 Aspirin 81 Mg Enteric Coated Tablet PO 81 mg DAILY TEGAN Administration Atorvastatin Calcium 40 mg 05/19/20 21:00 05/25/20 20:23 Atorvastatin Calcium 40 Mg Tab PO 40 mg HS TEGAN Administration Enoxaparin Sodium 40 mg 05/19/20 09:00 05/26/20 08:42 Enoxaparin Sodium 40 Mg/0.4 Ml Syringe SC 40 mg 0900 TEGAN Administration Fluticasone Propionate 0 gm 05/23/20 09:00 05/26/20 08:42 Fluticasone Propionate Nasal [place] 16 Gm Bottle NASAL 1 spr DAILY TEGAN Administration Insulin Human Lispro 0 units 05/19/20 02:23 05/26/20 12:04 Humalog 300 Units/3 Ml Vial SC 2 unit .MILD SLIDING SCALE PRN Administration Mild Correctional Scale Levothyroxine Sodium 25 mcg 05/21/20 06:00 05/26/20 05:25 Levothyroxine Sodium 25 Mcg Tab PO Not Given 0600 [facility] Lisinopril 5 mg 05/24/20 09:00 05/26/20 08:41 Lisinopril 5 Mg Tab PO 5 mg DAILY TEGAN Administration Metformin HCl 1,000 mg 05/22/20 08:00 05/26/20 08:41 Metformin 500 Mg Tab PO 1,000 mg BID-WM TEGAN Administration Ondansetron HCl 4 mg 05/19/20 01:22 05/25/20 02:07 Ondansetron Pf 4 Mg/2 Ml Vial IVP 4 mg Q6H PRN Administration Nausea/Vomiting Sodium Chloride 10 ml 05/19/20 01:22 05/26/20 08:42 Flush - Normal Saline 10 Ml Syringe IVF 10 ml PRN PRN Administration Saline Flush - Exam General Appearance: awake alert Eye: PERRL ENT: normocephalic atraumatic Neck: supple Respiratory: CTAB Cardiovascular: RRR Gastrointestinal: soft Extremities: no cyanosis Skin: normal turgor Neurological: no new deficit, facial droop, hemiplegia, speech deficit Neurological - other findings: Left-sided focal deficits Musculoskeletal: normal tone, no muscle wasting PSYCH: normal affect, normal behavior, A&O x 3 Results - Labs Result Diagrams: 05/22/20 05:05 05/22/20 05:05 Lab results: WBC 8.8 thou/uL (4.8-10.8) 05/22/20 05:05 Hgb 12.6 g/dL (12.0-16.0) 05/22/20 05:05 Hct 37.7 % (36.0-47.0) 05/22/20 05:05 MCV 84.5 fL (78.0-98.0) 05/22/20 05:05 Plt Count 178 thou/uL (130-400) 05/22/20 05:05 Neutrophils % 62.9 % (42.0-75.0) 05/22/20 05:05 Sodium 136 mmol/L (136-145) 05/22/20 05:05 Potassium 3.8 mmol/L (3.5-5.1) 05/22/20 05:05 Chloride 100 mmol/L (98-107) 05/22/20 05:05 Carbon Dioxide 28 mmol/L (22-29) 05/22/20 05:05 BUN 15 mg/dL (9.8-20.1) 05/22/20 05:05 Creatinine 0.75 mg/dL (0.6-1.1) 05/22/20 05:05 Glucose 179 mg/dL (70-105) H 05/22/20 05:05 Calcium 9.4 mg/dL (7.8-10.44) 05/22/20 05:05 Total Bilirubin 0.5 mg/dL (0.2-1.2) 05/18/20 19:18 AST 11 U/L (5-34) 05/18/20 19:18 ALT 12 U/L (8-55) 05/18/20 19:18 Alkaline Phosphatase 134 U/L (40-110) H 05/18/20 19:18 Troponin I Less than 0.010 ng/mL (< 0.028) 05/18/20 19:18 B-Natriuretic Peptide Less than 10.0 pg/mL (0-100) 05/18/20 19:18 Serum Total Protein 7.8 g/dL (6.0-8.3) 05/18/20 19:18 Albumin 3.8 g/dL (3.5-5.0) 05/18/20 19:18 - Radiology Interpretation CT scan - head Additional Comment: MRI of the brain was positive for acute lacunar infarction in the right basal ganglia. PN A/P (1) Acute CVA (cerebrovascular accident) Code(s): I63.9 - CEREBRAL INFARCTION, UNSPECIFIED Status: Acute (2) Hypertension Code(s): I10 - ESSENTIAL (PRIMARY) HYPERTENSION Status: Chronic Qualifiers: Hypertension type: essential hypertension Qualified Code(s): I10 - Essential (primary) hypertension (3) Hyperlipidemia Code(s): E78.5 - HYPERLIPIDEMIA, UNSPECIFIED Status: Chronic (4) Diabetes Code(s): E11.9 - TYPE 2 DIABETES MELLITUS WITHOUT COMPLICATIONS Status: Chronic Qualifiers: Diabetes mellitus type: type 2 - Plan Daily Plan: PT/OT, speech therapy, DVT proph w/SCDs Consults: Other (Rehab) Mrs. Bartlett is a 59-year-old female who presented with acute onset left-sided weakness. She was in the window for TPA but patient declined it. She continues to have significant left sided focal deficits. She has left facial droop and left hemiplegia. No acute events in the last 24 hours and is feeling better. Case management on board regarding discharge planning. Awaiting rehab placement. Repeat head CT 48 hours after symptom onset showed evidence of subacute lacunar infarction in the right basal ganglia extending into the right very periventricular white matter. Neurochecks every 4 hours. EEG to rule out cortical irritability is negative for seizure activity. Initial head CT reviewed which was negative for acute intracranial pathology. CTA of the head and neck did not show hemodynamically significant stenosis. Telemetry to rule out arrhythmias. 2D echo showed ejection fraction 55 to 60%. No thrombus or PFO. Permissive control of blood pressure at this time. Strict control of blood glucose Continue aspirin and high intensity statin for secondary stroke prevention. PT/OT/speech. Continue medical management per primary team Plan discussed in detail with the patient and the nursing staff.
--- NOTE | 2020-05-26 16:42 | PDOC.HOSPP ---
- Subjective Encounter Date: 05/26/20 Encounter Time: 16:40 Subjective: f/u for CVA with dense L hemiplegia. Awaiting potential [facility] rehab bed approval. - Objective Vital Signs & Weight: Vital Signs (12 hours) Temp Pulse Resp BP Pulse Ox 05/26/20 14:41 86 16 94 L 05/26/20 11:59 98.2 F 78 20 136/61 98 05/26/20 08:41 84 05/26/20 08:25 84 18 96 05/26/20 07:52 98.5 F 79 20 121/59 L 96 Weight Admit Weight 286 lb Weight 286 lb 2.56 oz I&O: 05/25/20 05/26/20 05/27/20 06:59 06:59 06:59 Intake Total 609 Balance 609 Result Diagrams: 05/22/20 05:05 05/22/20 05:05 Additional Labs: Accuchecks 05/26/20 05/26/20 05/25/20 10:54 05:31 20:33 POC Glucose 196 H 143 H 159 H 05/25/20 16:35 POC Glucose 191 H Hospitalist ROS - Medication Medications: Active Medications Generic Name Dose Route Start Last Admin Trade Name Freq PRN Reason Stop Dose Admin Acetaminophen 1,000 mg 05/25/20 14:56 05/25/20 16:05 Acetaminophen 500 Mg Tab PO 1,000 mg Q6H PRN Administration Headache/Fever or Pain Albuterol/Ipratropium 3 ml 05/23/20 18:30 05/26/20 14:41 Ipratropium/Albuterol Sulfate 3 Ml Neb NEB 3 ml [id number] TEGAN Administration Aspirin 81 mg 05/19/20 09:00 05/26/20 08:41 Aspirin 81 Mg Enteric Coated Tablet PO 81 mg DAILY TEGAN Administration Atorvastatin Calcium 40 mg 05/19/20 21:00 05/25/20 20:23 Atorvastatin Calcium 40 Mg Tab PO 40 mg HS TEGAN Administration Enoxaparin Sodium 40 mg 05/19/20 09:00 05/26/20 08:42 Enoxaparin Sodium 40 Mg/0.4 Ml Syringe SC 40 mg 0900 TEGAN Administration Fluticasone Propionate 0 gm 05/23/20 09:00 05/26/20 08:42 Fluticasone Propionate Nasal [place] 16 Gm Bottle NASAL 1 spr DAILY TEGAN Administration Insulin Human Lispro 0 units 05/19/20 02:23 05/26/20 12:04 Humalog 300 Units/3 Ml Vial SC 2 unit .MILD SLIDING SCALE PRN Administration Mild Correctional Scale Levothyroxine Sodium 25 mcg 05/21/20 06:00 05/26/20 05:25 Levothyroxine Sodium 25 Mcg Tab PO Not Given 0600 TEGAN Lisinopril 5 mg 05/24/20 09:00 05/26/20 08:41 Lisinopril 5 Mg Tab PO 5 mg DAILY TEGAN Administration Metformin HCl 1,000 mg 05/22/20 08:00 05/26/20 08:41 Metformin 500 Mg Tab PO 1,000 mg BID-WM TEGAN Administration Ondansetron HCl 4 mg 05/19/20 01:22 05/25/20 02:07 Ondansetron Pf 4 Mg/2 Ml Vial IVP 4 mg Q6H PRN Administration Nausea/Vomiting Sodium Chloride 10 ml 05/19/20 01:22 05/26/20 08:42 Flush - Normal Saline 10 Ml Syringe IVF 10 ml PRN PRN Administration Saline Flush - Exam General Appearance: NAD, awake alert Eye: PERRL, anicteric sclera ENT: normocephalic atraumatic, no oropharyngeal lesions Neck: supple, symmetric, no JVD, no thyromegaly, no lymphadenopathy Heart: RRR, no gallops, no rubs, normal peripheral pulses Heart - other findings: S1, S2 Respiratory: CTAB, no wheezes, no rales, no ronchi, normal chest expansion, no tachypnea Gastrointestinal: soft, non-tender, non-distended, normal bowel sounds, no palpable masses Extremities: no cyanosis, no clubbing, no edema Skin: normal turgor, no lesions Neurological: facial droop Neurological - other findings: L hemiplegia, dysarthria Musculoskeletal: normal tone, generalized weakness Psychiatric: A&O x 3 Psychiatric - other findings: tearful Hosp A/P (1) Acute CVA (cerebrovascular accident) Code(s): I63.9 - CEREBRAL INFARCTION, UNSPECIFIED Status: Acute Plan: Continue routine stroke protocol, await potential rehab bed (2) Diabetes Code(s): E11.9 - TYPE 2 DIABETES MELLITUS WITHOUT COMPLICATIONS Status: Chronic Qualifiers: Diabetes mellitus type: type 2 (3) Hyperlipidemia Code(s): E78.5 - HYPERLIPIDEMIA, UNSPECIFIED Status: Chronic (4) Hypertension Code(s): I10 - ESSENTIAL (PRIMARY) HYPERTENSION Status: Chronic Qualifiers: Hypertension type: essential hypertension Qualified Code(s): I10 - Essential (primary) hypertension (5) Morbid obesity Code(s): E66.01 - MORBID (SEVERE) OBESITY DUE TO EXCESS CALORIES Status: Chronic - Plan PT/OT, 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
[2020-05-26] MEDS: Atorvastatin Calcium 40 MG TAB PO SCH (21:00)
[2020-05-26] MEDS: ALPRAZolam 0.25 MG TAB PO SCH (21:00)
[2020-05-27] MEDS ORDERED: ALPRAZolam 0.25 MG TAB ONE (04:28)
[2020-05-27] MEDS: Levothyroxine Sodium 25 MCG TAB PO SCH (04:55)
[2020-05-27] MEDS ORDERED: ALPRAZolam 0.25 MG TAB PO SCH (05:15)
[2020-05-27] MEDS: Lisinopril 5 MG TAB PO SCH (10:20)
[2020-05-27] MEDS: metFORMIN 500 MG TAB PO SCH ×2 (10:20→16:41)
[2020-05-27] MEDS: Aspirin 81 mg Enteric Coated Tablet PO SCH (10:20)
[2020-05-27] MEDS: Enoxaparin Sodium 40 MG/0.4 ML SYRINGE SC SCH (10:21)
[2020-05-27] MEDS: Fluticasone Propionate Nasal Spray 16 gm Bottle NASAL SCH (10:21)
--- NOTE | 2020-05-27 13:23 | PDOC.NEUPN ---
- Subjective Encounter Date: 05/27/20 Subjective: She denies any new complaints in the last 24 hours. Continues to have s ignificant left-sided focal deficits. - Objective Vital Signs & Weight: Vital Signs (12 hours) Temp Pulse Resp BP Pulse Ox 05/27/20 11:32 97.8 F 80 20 135/64 98 05/27/20 11:27 80 16 96 05/27/20 07:59 79 16 100 05/27/20 07:56 98 F 76 22 H 120/58 L 98 05/27/20 04:00 98.5 F 84 20 147/81 H 95 05/27/20 03:30 94 L Weight Admit Weight 286 lb Weight 286 lb 2.56 oz I&O: 05/26/20 05/27/20 05/28/20 06:59 06:59 06:59 Intake Total 1200 240 Balance 1200 240 Result Diagrams: 05/22/20 05:05 05/22/20 05:05 Additional Labs: Accuchecks 05/27/20 05/26/20 05/26/20 10:47 20:32 16:45 POC Glucose 143 H 168 H 167 H Radiology Reviewed by me: Yes EKG Reviewed by me: Yes ROS - Review of Systems Constitutional: denies: fever, chills, sweats, weakness, malaise, other Eyes: denies: pain, vision change, conjunctivae inflammation, eyelid inflammation, redness, other Respiratory: denies: cough, dry, shortness of breath, hemoptysis, SOB with excertion, pleuritic pain, sputum, wheezing, other Gastrointestinal: denies: nausea, vomiting, abdominal pain, diarrhea, constipation, melena, hematochezia, other Neurological: reports: weakness, numbness, incoordination, change in speech - Medication Medications: Active Medications Generic Name Dose Route Start Last Admin Trade Name Freq PRN Reason Stop Dose Admin Acetaminophen 1,000 mg 05/25/20 14:56 05/25/20 16:05 Acetaminophen 500 Mg Tab PO 1,000 mg Q6H PRN Administration Headache/Fever or Pain Albuterol/Ipratropium 3 ml 05/23/20 18:30 05/27/20 11:27 Ipratropium/Albuterol Sulfate 3 Ml Neb NEB 3 ml [id number] TEGAN Administration Alprazolam 0.25 mg 05/26/20 21:00 05/26/20 21:00 Alprazolam 0.25 Mg Tab PO 0.25 mg HS TEGAN Administration Aspirin 81 mg 05/19/20 09:00 05/27/20 10:20 Aspirin 81 Mg Enteric Coated Tablet PO 81 mg DAILY TEGAN Administration Atorvastatin Calcium 40 mg 05/19/20 21:00 05/26/20 21:00 Atorvastatin Calcium 40 Mg Tab PO 40 mg HS TEGAN Administration Enoxaparin Sodium 40 mg 05/19/20 09:00 05/27/20 10:21 Enoxaparin Sodium 40 Mg/0.4 Ml Syringe SC 40 mg 0900 TEGAN Administration Fluticasone Propionate 0 gm 05/23/20 09:00 05/27/20 10:21 Fluticasone Propionate Nasal [place] 16 Gm Bottle NASAL 1 spr DAILY TEGAN Administration Insulin Human Lispro 0 units 05/19/20 02:23 05/26/20 16:58 Humalog 300 Units/3 Ml Vial SC 2 unit .MILD SLIDING SCALE PRN Administration Mild Correctional Scale Levothyroxine Sodium 25 mcg 05/21/20 06:00 05/27/20 04:55 Levothyroxine Sodium 25 Mcg Tab PO 25 mcg 0600 TEGAN Administration Lisinopril 5 mg 05/24/20 09:00 05/27/20 10:20 Lisinopril 5 Mg Tab PO 5 mg DAILY TEGAN Administration Metformin HCl 1,000 mg 05/22/20 08:00 05/27/20 10:20 Metformin 500 Mg Tab PO 1,000 mg BID-WM TEGAN Administration Ondansetron HCl 4 mg 05/19/20 01:22 05/25/20 02:07 Ondansetron Pf 4 Mg/2 Ml Vial IVP 4 mg Q6H PRN Administration Nausea/Vomiting Sodium Chloride 10 ml 05/19/20 01:22 05/26/20 08:42 Flush - Normal Saline 10 Ml Syringe IVF 10 ml PRN PRN Administration Saline Flush - Exam General Appearance: awake alert Eye: PERRL ENT: normocephalic atraumatic Neck: supple Respiratory: CTAB Cardiovascular: RRR Gastrointestinal: soft Extremities: no cyanosis Skin: normal turgor Neurological: no new deficit, facial droop, hemiplegia, speech deficit Musculoskeletal: normal tone, no muscle wasting PSYCH: normal affect, normal behavior, A&O x 3 Results - Labs Result Diagrams: 05/22/20 05:05 05/22/20 05:05 Lab results: WBC 8.8 thou/uL (4.8-10.8) 05/22/20 05:05 Hgb 12.6 g/dL (12.0-16.0) 05/22/20 05:05 Hct 37.7 % (36.0-47.0) 05/22/20 05:05 MCV 84.5 fL (78.0-98.0) 05/22/20 05:05 Plt Count 178 thou/uL (130-400) 05/22/20 05:05 Neutrophils % 62.9 % (42.0-75.0) 05/22/20 05:05 Sodium 136 mmol/L (136-145) 05/22/20 05:05 Potassium 3.8 mmol/L (3.5-5.1) 05/22/20 05:05 Chloride 100 mmol/L (98-107) 05/22/20 05:05 Carbon Dioxide 28 mmol/L (22-29) 05/22/20 05:05 BUN 15 mg/dL (9.8-20.1) 05/22/20 05:05 Creatinine 0.75 mg/dL (0.6-1.1) 05/22/20 05:05 Glucose 179 mg/dL (70-105) H 05/22/20 05:05 Calcium 9.4 mg/dL (7.8-10.44) 05/22/20 05:05 Total Bilirubin 0.5 mg/dL (0.2-1.2) 05/18/20 19:18 AST 11 U/L (5-34) 05/18/20 19:18 ALT 12 U/L (8-55) 05/18/20 19:18 Alkaline Phosphatase 134 U/L (40-110) H 05/18/20 19:18 Troponin I Less than 0.010 ng/mL (< 0.028) 05/18/20 19:18 B-Natriuretic Peptide Less than 10.0 pg/mL (0-100) 05/18/20 19:18 Serum Total Protein 7.8 g/dL (6.0-8.3) 05/18/20 19:18 Albumin 3.8 g/dL (3.5-5.0) 05/18/20 19:18 - Radiology Interpretation CT scan - head Additional Comment: Subacute infarction in the right basal ganglia extending into the right periventricular white matter PN A/P (1) Acute CVA (cerebrovascular accident) Code(s): I63.9 - CEREBRAL INFARCTION, UNSPECIFIED Status: Acute (2) Hypertension Code(s): I10 - ESSENTIAL (PRIMARY) HYPERTENSION Status: Chronic Qualifiers: Hypertension type: essential hypertension Qualified Code(s): I10 - Essential (primary) hypertension (3) Hyperlipidemia Code(s): E78.5 - HYPERLIPIDEMIA, UNSPECIFIED Status: Chronic (4) Diabetes Code(s): E11.9 - TYPE 2 DIABETES MELLITUS WITHOUT COMPLICATIONS Status: Chronic Qualifiers: Diabetes mellitus type: type 2 - Plan Daily Plan: PT/OT, speech therapy, DVT proph w/lovenox Mrs. Bartlett is a 59-year-old female who presented with acute onset left-sided weakness. She was in the window for TPA but patient declined it. She continues to have significant left sided focal deficits. No acute events in the last 24 hours. Case management on board regarding discharge planning. Awaiting rehab placement. Repeat head CT 48 hours after symptom onset showed evidence of subacute lacunar infarction in the right basal ganglia extending into the right very periventricular white matter. Neurochecks every 4 hours. EEG to rule out cortical irritability is negative for seizure activity. Initial head CT reviewed which was negative for acute intracranial pathology. CTA of the head and neck did not show hemodynamically significant stenosis. Telemetry to rule out arrhythmias. 2D echo showed ejection fraction 55 to 60%. No thrombus or PFO. Control of blood pressure Strict control of blood glucose Continue aspirin and high intensity statin for secondary stroke prevention. PT/OT/speech. Continue medical management per primary team Plan discussed in detail with the patient
[2020-05-27] MEDS: Atorvastatin Calcium 40 MG TAB PO SCH (20:17)
[2020-05-28] MEDS: ALPRAZolam 0.25 MG TAB PO SCH ×2 (00:35→20:10)
[2020-05-28] MEDS: Levothyroxine Sodium 25 MCG TAB PO SCH (05:48)
[2020-05-28] MEDS: Lisinopril 5 MG TAB PO SCH (09:36)
[2020-05-28] MEDS: Enoxaparin Sodium 40 MG/0.4 ML SYRINGE SC SCH (09:36)
[2020-05-28] MEDS: metFORMIN 500 MG TAB PO SCH ×2 (09:36→17:01)
[2020-05-28] MEDS: Aspirin 81 mg Enteric Coated Tablet PO SCH (09:37)
[2020-05-28] MEDS: Fluticasone Propionate Nasal Spray 16 gm Bottle NASAL SCH (09:37)
--- NOTE | 2020-05-28 12:12 | PDOC.NEUPN ---
- Subjective Encounter Date: 05/28/20 Subjective: No acute complaints during the last 24 hours. - Objective Vital Signs & Weight: Vital Signs (12 hours) Temp Pulse Resp BP BP Pulse Ox 05/28/20 11:43 83 14 96 05/28/20 08:06 98.6 F 78 20 134/64 98 05/28/20 07:33 74 16 97 05/28/20 06:49 164/71 H 05/28/20 03:32 98.9 F 86 20 136/64 96 05/28/20 03:25 94 L 05/28/20 00:28 99.2 F 83 18 119/56 L 97 Weight Admit Weight 286 lb Weight 286 lb 2.56 oz I&O: 05/27/20 05/28/20 05/29/20 06:59 06:59 06:59 Intake Total 1200 480 Balance 1200 480 Result Diagrams: 05/22/20 05:05 05/22/20 05:05 Additional Labs: Accuchecks 05/28/20 05/27/20 05/27/20 05:48 20:34 16:39 POC Glucose 137 H 155 H 147 H Radiology Reviewed by me: Yes EKG Reviewed by me: Yes ROS - Review of Systems Constitutional: denies: fever, chills, sweats, weakness, malaise, other Eyes: denies: pain, vision change, conjunctivae inflammation, eyelid inflammation, redness, other ENT: denies: ear pain, ear discharge, nose pain, nose discharge, nose congestion, mouth pain, mouth swelling, throat pain, throat swelling, other Respiratory: denies: cough, dry, shortness of breath, hemoptysis, SOB with excertion, pleuritic pain, sputum, wheezing, other Genitourinary: denies: dysuria, frequency, incontinence, hematuria, retention, other Skin: denies: rash, lesions, dav, bruising, other Neurological: reports: weakness, numbness, incoordination, change in speech - Medication Medications: Active Medications Generic Name Dose Route Start Last Admin Trade Name Freq PRN Reason Stop Dose Admin Acetaminophen 1,000 mg 05/25/20 14:56 05/25/20 16:05 Acetaminophen 500 Mg Tab PO 1,000 mg Q6H PRN Administration Headache/Fever or Pain Albuterol/Ipratropium 3 ml 05/23/20 18:30 05/28/20 11:43 Ipratropium/Albuterol Sulfate 3 Ml Neb NEB 3 ml [id number] TEGAN Administration Alprazolam 0.25 mg 05/26/20 21:00 05/28/20 00:35 Alprazolam 0.25 Mg Tab PO Not Given HS TEGAN Aspirin 81 mg 05/19/20 09:00 05/28/20 09:37 Aspirin 81 Mg Enteric Coated Tablet PO 81 mg DAILY TEGAN Administration Atorvastatin Calcium 40 mg 05/19/20 21:00 05/27/20 20:17 Atorvastatin Calcium 40 Mg Tab PO 40 mg HS TEGAN Administration Enoxaparin Sodium 40 mg 05/19/20 09:00 05/28/20 09:36 Enoxaparin Sodium 40 Mg/0.4 Ml Syringe SC 40 mg 0900 TEGAN Administration Fluticasone Propionate 0 gm 05/23/20 09:00 05/28/20 09:37 Fluticasone Propionate Nasal [place] 16 Gm Bottle NASAL 1 spr DAILY TEGAN Administration Insulin Human Lispro 0 units 05/19/20 02:23 05/26/20 16:58 Humalog 300 Units/3 Ml Vial SC 2 unit .MILD SLIDING SCALE PRN Administration Mild Correctional Scale Levothyroxine Sodium 25 mcg 05/21/20 06:00 05/28/20 05:48 Levothyroxine Sodium 25 Mcg Tab PO 25 mcg 0600 TEGAN Administration Lisinopril 5 mg 05/24/20 09:00 05/28/20 09:36 Lisinopril 5 Mg Tab PO 5 mg DAILY TEGAN Administration Metformin HCl 1,000 mg 05/22/20 08:00 05/28/20 09:36 Metformin 500 Mg Tab PO 1,000 mg BID-WM TEGAN Administration Ondansetron HCl 4 mg 05/19/20 01:22 05/25/20 02:07 Ondansetron Pf 4 Mg/2 Ml Vial IVP 4 mg Q6H PRN Administration Nausea/Vomiting Sodium Chloride 10 ml 05/19/20 01:22 05/26/20 08:42 Flush - Normal Saline 10 Ml Syringe IVF 10 ml PRN PRN Administration Saline Flush - Exam General Appearance: awake alert Eye: PERRL ENT: normocephalic atraumatic Neck: supple Respiratory: CTAB Cardiovascular: RRR Gastrointestinal: soft Extremities: no cyanosis Skin: normal turgor Neurological: no focal deficits, no new deficit Musculoskeletal: normal tone, no muscle wasting PSYCH: normal affect, normal behavior, A&O x 3 Results - Labs Result Diagrams: 05/22/20 05:05 05/22/20 05:05 Lab results: WBC 8.8 thou/uL (4.8-10.8) 05/22/20 05:05 Hgb 12.6 g/dL (12.0-16.0) 05/22/20 05:05 Hct 37.7 % (36.0-47.0) 05/22/20 05:05 MCV 84.5 fL (78.0-98.0) 05/22/20 05:05 Plt Count 178 thou/uL (130-400) 05/22/20 05:05 Neutrophils % 62.9 % (42.0-75.0) 05/22/20 05:05 Sodium 136 mmol/L (136-145) 05/22/20 05:05 Potassium 3.8 mmol/L (3.5-5.1) 05/22/20 05:05 Chloride 100 mmol/L (98-107) 05/22/20 05:05 Carbon Dioxide 28 mmol/L (22-29) 05/22/20 05:05 BUN 15 mg/dL (9.8-20.1) 05/22/20 05:05 Creatinine 0.75 mg/dL (0.6-1.1) 05/22/20 05:05 Glucose 179 mg/dL (70-105) H 05/22/20 05:05 Calcium 9.4 mg/dL (7.8-10.44) 05/22/20 05:05 Total Bilirubin 0.5 mg/dL (0.2-1.2) 05/18/20 19:18 AST 11 U/L (5-34) 05/18/20 19:18 ALT 12 U/L (8-55) 05/18/20 19:18 Alkaline Phosphatase 134 U/L (40-110) H 05/18/20 19:18 Troponin I Less than 0.010 ng/mL (< 0.028) 05/18/20 19:18 B-Natriuretic Peptide Less than 10.0 pg/mL (0-100) 05/18/20 19:18 Serum Total Protein 7.8 g/dL (6.0-8.3) 05/18/20 19:18 Albumin 3.8 g/dL (3.5-5.0) 05/18/20 19:18 - Radiology Interpretation CT scan - head Additional Comment: Head CT consistent with subacute infarction in the right basal ganglia extending into the right periventricular white matter. PN A/P (1) Acute CVA (cerebrovascular accident) Code(s): I63.9 - CEREBRAL INFARCTION, UNSPECIFIED Status: Acute (2) Hypertension Code(s): I10 - ESSENTIAL (PRIMARY) HYPERTENSION Status: Chronic Qualifiers: Hypertension type: essential hypertension Qualified Code(s): I10 - Essential (primary) hypertension (3) Hyperlipidemia Code(s): E78.5 - HYPERLIPIDEMIA, UNSPECIFIED Status: Chronic (4) Diabetes Code(s): E11.9 - TYPE 2 DIABETES MELLITUS WITHOUT COMPLICATIONS Status: Chronic Qualifiers: Diabetes mellitus type: type 2 - Plan Daily Plan: PT/OT, speech therapy, DVT proph w/lovenox Mrs. Bartlett is a 59-year-old female who presented with acute onset left-sided weakness. She was in the window for TPA but patient declined it. She continues to have significant left sided focal deficits but today she was able to move her right arm. No acute events in the last 24 hours. Case management on board regarding discharge planning. Awaiting rehab placement. Repeat head CT 48 hours after symptom onset showed evidence of subacute lacunar infarction in the right basal ganglia extending into the right very periventricular white matter. Neurochecks every 4 hours. EEG to rule out cortical irritability is negative for seizure activity. Initial head CT reviewed which was negative for acute intracranial pathology. CTA of the head and neck did not show hemodynamically significant stenosis. Telemetry to rule out arrhythmias. 2D echo showed ejection fraction 55 to 60%. No thrombus or PFO. Control of blood pressure Strict control of blood glucose Continue aspirin and high intensity statin for secondary stroke prevention. PT/OT/speech. Continue medical management per primary team Plan discussed in detail with the patient
--- NOTE | 2020-05-28 17:01 | PDOC.HOSPP ---
- Subjective Encounter Date: 05/28/20 Encounter Time: 12:20 Subjective: f/u for CVA with L hemiplegia awaiting rehab bed. No new events noted. - Objective Vital Signs & Weight: Vital Signs (12 hours) Temp Pulse Resp BP BP Pulse Ox 05/28/20 12:00 98.9 F 88 18 108/59 L 97 05/28/20 11:43 83 14 96 05/28/20 08:06 98.6 F 78 20 134/64 98 05/28/20 07:33 74 16 97 05/28/20 06:49 164/71 H Weight Admit Weight 286 lb Weight 286 lb 2.56 oz I&O: 05/27/20 05/28/20 05/29/20 06:59 06:59 06:59 Intake Total 1200 480 120 Balance 1200 480 120 Result Diagrams: 05/22/20 05:05 05/22/20 05:05 Additional Labs: Accuchecks 05/28/20 05/28/20 05/28/20 16:35 12:57 05:48 POC Glucose 153 H 150 H 137 H 05/27/20 20:34 POC Glucose 155 H Hospitalist ROS - Medication Medications: Active Medications Generic Name Dose Route Start Last Admin Trade Name Freq PRN Reason Stop Dose Admin Acetaminophen 1,000 mg 05/25/20 14:56 05/25/20 16:05 Acetaminophen 500 Mg Tab PO 1,000 mg Q6H PRN Administration Headache/Fever or Pain Albuterol/Ipratropium 3 ml 05/23/20 18:30 05/28/20 14:45 Ipratropium/Albuterol Sulfate 3 Ml Neb NEB Not Given [id number] TEGAN Alprazolam 0.25 mg 05/26/20 21:00 05/28/20 00:35 Alprazolam 0.25 Mg Tab PO Not Given HS TEGAN Aspirin 81 mg 05/19/20 09:00 05/28/20 09:37 Aspirin 81 Mg Enteric Coated Tablet PO 81 mg DAILY TEGAN Administration Atorvastatin Calcium 40 mg 05/19/20 21:00 05/27/20 20:17 Atorvastatin Calcium 40 Mg Tab PO 40 mg HS TEGAN Administration Enoxaparin Sodium 40 mg 05/19/20 09:00 05/28/20 09:36 Enoxaparin Sodium 40 Mg/0.4 Ml Syringe SC 40 mg 0900 TEGAN Administration Fluticasone Propionate 0 gm 05/23/20 09:00 05/28/20 09:37 Fluticasone Propionate Nasal [place] 16 Gm Bottle NASAL 1 spr DAILY TEGAN Administration Insulin Human Lispro 0 units 05/19/20 02:23 05/26/20 16:58 Humalog 300 Units/3 Ml Vial SC 2 unit .MILD SLIDING SCALE PRN Administration Mild Correctional Scale Levothyroxine Sodium 25 mcg 05/21/20 06:00 05/28/20 05:48 Levothyroxine Sodium 25 Mcg Tab PO 25 mcg 0600 TEGAN Administration Lisinopril 5 mg 05/24/20 09:00 05/28/20 09:36 Lisinopril 5 Mg Tab PO 5 mg DAILY TEGAN Administration Metformin HCl 1,000 mg 05/22/20 08:00 05/28/20 09:36 Metformin 500 Mg Tab PO 1,000 mg BID-WM TEGAN Administration Ondansetron HCl 4 mg 05/19/20 01:22 05/25/20 02:07 Ondansetron Pf 4 Mg/2 Ml Vial IVP 4 mg Q6H PRN Administration Nausea/Vomiting Sodium Chloride 10 ml 05/19/20 01:22 05/26/20 08:42 Flush - Normal Saline 10 Ml Syringe IVF 10 ml PRN PRN Administration Saline Flush - Exam General Appearance: NAD, awake alert Eye: PERRL, anicteric sclera ENT: normocephalic atraumatic, no oropharyngeal lesions Neck: supple, symmetric, no JVD, no thyromegaly, no lymphadenopathy Heart: RRR, no gallops, no rubs, normal peripheral pulses Heart - other findings: S1, S2 Respiratory: CTAB, no wheezes, no rales, no ronchi, normal chest expansion, no tachypnea Gastrointestinal: soft, non-tender, non-distended, normal bowel sounds, no palpable masses Gastrointestinal - other findings: obese Extremities: no cyanosis, no clubbing, no edema Skin: normal turgor Neurological: facial droop, hemiplegia, speech deficit Musculoskeletal: normal tone, generalized weakness Psychiatric: A&O x 3, flat affect Hosp A/P (1) Acute CVA (cerebrovascular accident) Code(s): I63.9 - CEREBRAL INFARCTION, UNSPECIFIED Status: Acute Plan: Continue routine stroke protocol, awaiting [facility] bed (2) Diabetes Code(s): E11.9 - TYPE 2 DIABETES MELLITUS WITHOUT COMPLICATIONS Status: Chronic Qualifiers: Diabetes mellitus type: type 2 Plan: Continue ISS/Metformin/ADA diet (3) Hyperlipidemia Code(s): E78.5 - HYPERLIPIDEMIA, UNSPECIFIED Status: Chronic (4) Hypertension Code(s): I10 - ESSENTIAL (PRIMARY) HYPERTENSION Status: Chronic Qualifiers: Hypertension type: essential hypertension Qualified Code(s): I10 - Essential (primary) hypertension (5) Morbid obesity Code(s): E66.01 - MORBID (SEVERE) OBESITY DUE TO EXCESS CALORIES Status: Chronic - Plan 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
[2020-05-28] MEDS: Atorvastatin Calcium 40 MG TAB PO SCH (20:09)
[2020-05-28] MEDS: Acetaminophen 500 MG TAB PO PRN (22:32)
[2020-05-29] MEDS: Levothyroxine Sodium 25 MCG TAB PO SCH (05:16)
[2020-05-29] MEDS: Fluticasone Propionate Nasal Spray 16 gm Bottle NASAL SCH (08:18)
[2020-05-29] MEDS: Aspirin 81 mg Enteric Coated Tablet PO SCH (08:19)
[2020-05-29] MEDS: metFORMIN 500 MG TAB PO SCH ×2 (08:19→16:26)
[2020-05-29] MEDS: Enoxaparin Sodium 40 MG/0.4 ML SYRINGE SC SCH (08:20)
[2020-05-29] MEDS: Lisinopril 5 MG TAB PO SCH (09:53)
--- NOTE | 2020-05-29 16:13 | PDOC.HOSPP ---
- Subjective Encounter Date: 05/29/20 Encounter Time: 16:00 Subjective: f/u for CVA awaiting [facility] placement. No new issues reported. - Objective Vital Signs & Weight: Vital Signs (12 hours) Temp Pulse Resp BP BP Pulse Ox 05/29/20 15:40 98.3 F 77 18 127/58 L 98 05/29/20 13:30 67 16 05/29/20 11:59 98.0 F 77 20 126/60 98 05/29/20 08:09 98 05/29/20 07:42 98.4 F 83 20 118/57 L 98 05/29/20 07:20 76 19 Weight Admit Weight 286 lb Weight 286 lb 2.56 oz I&O: 05/28/20 05/29/20 05/30/20 06:59 06:59 06:59 Intake Total 480 120 Balance 480 120 Result Diagrams: 05/22/20 05:05 05/22/20 05:05 Additional Labs: Accuchecks 05/29/20 05/29/20 05/28/20 11:14 05:10 20:34 POC Glucose 144 H 102 H 135 H 05/28/20 16:35 POC Glucose 153 H Hospitalist ROS - Medication Medications: Active Medications Generic Name Dose Route Start Last Admin Trade Name Freq PRN Reason Stop Dose Admin Acetaminophen 1,000 mg 05/25/20 14:56 05/28/20 22:32 Acetaminophen 500 Mg Tab PO 1,000 mg Q6H PRN Administration Headache/Fever or Pain Albuterol/Ipratropium 3 ml 05/23/20 18:30 05/29/20 13:30 Ipratropium/Albuterol Sulfate 3 Ml Neb NEB 3 ml [id number] TEGAN Administration Alprazolam 0.25 mg 05/26/20 21:00 05/28/20 20:10 Alprazolam 0.25 Mg Tab PO Not Given HS TEGAN Aspirin 81 mg 05/19/20 09:00 05/29/20 08:19 Aspirin 81 Mg Enteric Coated Tablet PO 81 mg DAILY TEGAN Administration Atorvastatin Calcium 40 mg 05/19/20 21:00 05/28/20 20:09 Atorvastatin Calcium 40 Mg Tab PO 40 mg HS TEGAN Administration Enoxaparin Sodium 40 mg 05/19/20 09:00 05/29/20 08:20 Enoxaparin Sodium 40 Mg/0.4 Ml Syringe SC 40 mg 0900 TEGAN Administration Fluticasone Propionate 0 gm 05/23/20 09:00 05/29/20 08:18 Fluticasone Propionate Nasal [place] 16 Gm Bottle NASAL 1 spr DAILY TEGAN Administration Insulin Human Lispro 0 units 05/19/20 02:23 05/26/20 16:58 Humalog 300 Units/3 Ml Vial SC 2 unit .MILD SLIDING SCALE PRN Administration Mild Correctional Scale Levothyroxine Sodium 25 mcg 05/21/20 06:00 05/29/20 05:16 Levothyroxine Sodium 25 Mcg Tab PO 25 mcg 0600 TEGAN Administration Lisinopril 5 mg 05/24/20 09:00 05/29/20 09:53 Lisinopril 5 Mg Tab PO 5 mg DAILY TEGAN Administration Metformin HCl 1,000 mg 05/22/20 08:00 05/29/20 08:19 Metformin 500 Mg Tab PO 1,000 mg BID-WM TEGAN Administration Ondansetron HCl 4 mg 05/19/20 01:22 05/25/20 02:07 Ondansetron Pf 4 Mg/2 Ml Vial IVP 4 mg Q6H PRN Administration Nausea/Vomiting Sodium Chloride 10 ml 05/19/20 01:22 05/26/20 08:42 Flush - Normal Saline 10 Ml Syringe IVF 10 ml PRN PRN Administration Saline Flush - Exam General Appearance: NAD, awake alert Eye: PERRL, anicteric sclera ENT: normocephalic atraumatic, no oropharyngeal lesions Neck: supple, symmetric, no JVD, no thyromegaly, no lymphadenopathy Heart: RRR, no gallops, no rubs, normal peripheral pulses Heart - other findings: S1, S2 Respiratory: CTAB, no wheezes, no rales, no ronchi, normal chest expansion, no tachypnea Gastrointestinal: soft, non-tender, non-distended, normal bowel sounds, no palpable masses Extremities: no cyanosis, no clubbing, no edema Skin: normal turgor Neurological: facial droop Neurological - other findings: L hemiplegia, mild dysarthria Musculoskeletal: normal tone, generalized weakness Psychiatric: A&O x 3, flat affect Hosp A/P (1) Acute CVA (cerebrovascular accident) Code(s): I63.9 - CEREBRAL INFARCTION, UNSPECIFIED Status: Acute Plan: Continue routine stroke protocol, ASA/Lipitor (2) Diabetes Code(s): E11.9 - TYPE 2 DIABETES MELLITUS WITHOUT COMPLICATIONS Status: Chronic Qualifiers: Diabetes mellitus type: type 2 (3) Hyperlipidemia Code(s): E78.5 - HYPERLIPIDEMIA, UNSPECIFIED Status: Chronic (4) Hypertension Code(s): I10 - ESSENTIAL (PRIMARY) HYPERTENSION Status: Chronic Qualifiers: Hypertension type: essential hypertension Qualified Code(s): I10 - Essential (primary) hypertension (5) Morbid obesity Code(s): E66.01 - MORBID (SEVERE) OBESITY DUE TO EXCESS CALORIES Status: Chronic - Plan PT/OT, 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
[2020-05-29] MEDS: Acetaminophen 500 MG TAB PO PRN (20:14)
[2020-05-29] MEDS: Atorvastatin Calcium 40 MG TAB PO SCH (20:14)
[2020-05-29] MEDS: ALPRAZolam 0.25 MG TAB PO SCH (21:46)
[2020-05-30] MEDS: Levothyroxine Sodium 25 MCG TAB PO SCH (05:39)
[2020-05-30 06:23] LABS: #Eosinphils 0.1 thou/uL (0.0-0.7); #Lymphocytes 2.2 thou/uL (1.20-3.40); #Monocytes 0.7 thou/uL (0.11-0.59); #Neutrophils 4.5 thou/uL (1.40-6.50); %Basophils 0.6 % (0.0-1.0); %Eosinophils 1.1 % (0.0-10.0); %Lymphocytes 29.6 % (21.0-51.0); %Monocytes 8.7 % (0.0-10.0); Hemoglobin 13.3 g/dL (12.0-16.0); Mean Corpuscular HGB CONC 34.8 g/dL (32.0-36.0); Mean Corpuscular Hemoglobin 29.4 pg (27.0-31.0); Mean Corpuscular Volume 84.7 fL (78.0-98.0); Mean Platelet Volume 8.9 fL (7.4-10.4); Platelet Count 163 thou/uL (130-400); RBC Distribution Width 13.7 % (11.5-14.5); Red Blood Cell (RBC) Count 4.53 mill/uL (4.20-5.40); White Blood Cell (WBC) Count 7.5 thou/uL (4.8-10.8)
[2020-05-30 06:42] LABS: Anion Gap 15 mmol/L (10-20); BUN (Urea Nitrogen) 13 mg/dL (9.8-20.1); Calc. Creatinine Clearance 177 mL/min (70-130); Calcium 9.7 mg/dL (7.8-10.44); Carbon Dioxide 23 mmol/L (22-29); Chloride 102 mmol/L (98-107); Glucose 115 mg/dL (70-105); Magnesium 1.5 mg/dL (1.6-2.6); Potassium 3.6 mmol/L (3.5-5.1); Sodium 136 mmol/L (136-145)
[2020-05-30] MEDS: Fluticasone Propionate Nasal Spray 16 gm Bottle NASAL SCH (09:15)
[2020-05-30] MEDS: Aspirin 81 mg Enteric Coated Tablet PO SCH (09:16)
[2020-05-30] MEDS: metFORMIN 500 MG TAB PO SCH ×2 (09:16→17:15)
[2020-05-30] MEDS: Lisinopril 5 MG TAB PO SCH (09:16)
[2020-05-30] MEDS: Enoxaparin Sodium 40 MG/0.4 ML SYRINGE SC SCH (09:16)
--- NOTE | 2020-05-30 10:02 | EKG ---
Test Reason : Blood Pressure : / mmHG Vent. Rate : 074 BPM Atrial Rate : 074 BPM P-R Int : 156 ms QRS Dur : 082 ms QT Int : 374 ms P-R-T Axes : 073 025 043 degrees QTc Int : 415 ms Normal sinus rhythm Normal ECG Confirmed by TRENT BRADLEY, KESHIA Messer ([id number]), editor city [place] ([id number]) on 05/30/2020 10:02:20 AM Referred By: Confirmed By:KESHIA NEWMAN MD
--- NOTE | 2020-05-30 13:31 | PDOC.HOSPP ---
- Subjective Encounter Date: 05/30/20 Encounter Time: 13:28 Subjective: Ms. Bartlett is a 59-year-old woman who was admitted to the hospital with acute stroke. She was within the window for TPA when she was admitted and this was offered but the patient did declined that. She does have a dense hemiplegia on her left side. Her speech is still slurred and she also has facial drooping. CT angiogram showed occlusion of the mid right cervical vertebral vessel. The patient is pending transfer to a rehab hospital whenever she is approved. Case management continues to work on it. Clinically she is stable for discharge to rehab when a bed becomes available. - Objective Vital Signs & Weight: Vital Signs (12 hours) Temp Pulse Resp BP Pulse Ox 05/30/20 12:27 97.9 F 86 16 116/56 L 95 05/30/20 10:55 85 14 05/30/20 08:00 97.8 F 80 18 128/63 05/30/20 07:40 74 16 05/30/20 03:55 98.0 F 74 20 109/52 L 96 Weight Admit Weight 286 lb Weight 286 lb 2.56 oz I&O: 05/29/20 05/30/20 05/31/20 06:59 06:59 06:59 Intake Total 120 940 Balance 120 940 Result Diagrams: 05/30/20 06:13 05/30/20 06:12 Additional Labs: Accuchecks 05/30/20 05/30/20 05/29/20 12:30 05:36 20:12 POC Glucose 109 H 111 H 131 H 05/29/20 16:25 POC Glucose 135 H Radiology Reviewed by me: Yes EKG Reviewed by me: Yes Hospitalist ROS - Review of Systems Constitutional: reports: weakness Neurological: reports: weakness, numbness, incoordination, change in speech - Medication Medications: Active Medications Generic Name Dose Route Start Last Admin Trade Name Freq PRN Reason Stop Dose Admin Acetaminophen 1,000 mg 05/25/20 14:56 05/29/20 20:14 Acetaminophen 500 Mg Tab PO 1,000 mg Q6H PRN Administration Headache/Fever or Pain Albuterol/Ipratropium 3 ml 05/23/20 18:30 05/30/20 10:55 Ipratropium/Albuterol Sulfate 3 Ml Neb NEB 3 ml [id number] TEGAN Administration Alprazolam 0.25 mg 05/26/20 21:00 05/29/20 21:46 Alprazolam 0.25 Mg Tab PO Not Given HS TEGAN Aspirin 81 mg 05/19/20 09:00 05/30/20 09:16 Aspirin 81 Mg Enteric Coated Tablet PO 81 mg DAILY TEGAN Administration Atorvastatin Calcium 40 mg 05/19/20 21:00 05/29/20 20:14 Atorvastatin Calcium 40 Mg Tab PO 40 mg HS TEGAN Administration Enoxaparin Sodium 40 mg 05/19/20 09:00 05/30/20 09:16 Enoxaparin Sodium 40 Mg/0.4 Ml Syringe SC 40 mg 0900 TEGAN Administration Fluticasone Propionate 0 gm 05/23/20 09:00 05/30/20 09:15 Fluticasone Propionate Nasal [place] 16 Gm Bottle NASAL 1 spr DAILY TEGAN Administration Insulin Human Lispro 0 units 05/19/20 02:23 05/26/20 16:58 Humalog 300 Units/3 Ml Vial SC 2 unit .MILD SLIDING SCALE PRN Administration Mild Correctional Scale Levothyroxine Sodium 25 mcg 05/21/20 06:00 05/30/20 05:39 Levothyroxine Sodium 25 Mcg Tab PO 25 mcg 0600 TEGAN Administration Lisinopril 5 mg 05/24/20 09:00 05/30/20 09:16 Lisinopril 5 Mg Tab PO 5 mg DAILY TEGAN Administration Metformin HCl 1,000 mg 05/22/20 08:00 05/30/20 09:16 Metformin 500 Mg Tab PO 1,000 mg BID-WM TEGAN Administration Ondansetron HCl 4 mg 05/19/20 01:22 05/30/20 01:13 Ondansetron Odt 4 Mg Tab PO 4 mg Q6H PRN Administration Nausea/Vomiting Ondansetron HCl 4 mg 05/19/20 01:22 05/25/20 02:07 Ondansetron Pf 4 Mg/2 Ml Vial IVP 4 mg Q6H PRN Administration Nausea/Vomiting Sodium Chloride 10 ml 05/19/20 01:22 05/26/20 08:42 Flush - Normal Saline 10 Ml Syringe IVF 10 ml PRN PRN Administration Saline Flush - Exam General Appearance: NAD, awake alert Eye: PERRL, anicteric sclera ENT: normocephalic atraumatic, no oropharyngeal lesions, moist mucosa Neck: supple, symmetric, no JVD Heart: RRR, no murmur, no gallops, no rubs Respiratory: CTAB, no wheezes, no rales, no ronchi, normal chest expansion Gastrointestinal: soft, non-tender, non-distended, normal bowel sounds Extremities: no cyanosis, no clubbing Skin: normal turgor Neurological: facial droop, hemiplegia, speech deficit Musculoskeletal: generalized weakness Psychiatric: normal affect, normal behavior, A&O x 3 Hosp A/P (1) Acute CVA (cerebrovascular accident) Code(s): I63.9 - CEREBRAL INFARCTION, UNSPECIFIED Status: Acute Plan: Patient with likely acute stroke involving the right cerebral vertebral vessels. (2) Diabetes Code(s): E11.9 - TYPE 2 DIABETES MELLITUS WITHOUT COMPLICATIONS Status: Chronic Qualifiers: Diabetes mellitus type: type 2 Diabetes mellitus complication status: with hyperglycemia (3) Hyperlipidemia Code(s): E78.5 - HYPERLIPIDEMIA, UNSPECIFIED Status: Chronic Qualifiers: Hyperlipidemia type: mixed hyperlipidemia Qualified Code(s): E78.2 - Mixed hyperlipidemia Plan: Continue high intensity statin. 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 Patient with acute CVA with dense hemiplegia on the left. She is clinically stable for transfer to rehab. This can be done whenever she is approved.
[2020-05-30] MEDS ORDERED: Magnesium Oxide 400 MG TAB PO SCH (13:45)
[2020-05-30] MEDS: ALPRAZolam 0.25 MG TAB PO SCH (20:02)
[2020-05-30] MEDS: Atorvastatin Calcium 40 MG TAB PO SCH (20:02)
[2020-05-31] MEDS: Levothyroxine Sodium 25 MCG TAB PO SCH (05:49)
[2020-05-31] MEDS: Aspirin 81 mg Enteric Coated Tablet PO SCH (09:23)
[2020-05-31] MEDS: Fluticasone Propionate Nasal Spray 16 gm Bottle NASAL SCH (09:23)
[2020-05-31] MEDS: Enoxaparin Sodium 40 MG/0.4 ML SYRINGE SC SCH (09:23)
[2020-05-31] MEDS: metFORMIN 500 MG TAB PO SCH ×2 (09:23→16:33)
[2020-05-31] MEDS: Lisinopril 5 MG TAB PO SCH (09:23)
[2020-05-31] MEDS ORDERED: Albuterol Sulfate 2.5 mg/3 ml Neb ONE (11:12)
--- NOTE | 2020-05-31 12:06 | PDOC.HOSPP ---
- Subjective Encounter Date: 05/31/20 Encounter Time: 12:04 Subjective: This patient was seen and evaluated. She reports no issues overnight. She is pending acceptance at a rehab in [facility]. She is medically stable for discharge. - Objective Vital Signs & Weight: Vital Signs (12 hours) Temp Pulse Resp BP BP Pulse Ox 05/31/20 11:15 79 16 05/31/20 07:45 98.2 F 78 20 114/70 97 05/31/20 06:25 74 20 05/31/20 05:16 98.9 F 80 16 132/60 98 Weight Admit Weight 286 lb Weight 286 lb 2.56 oz I&O: 05/30/20 05/31/20 06/01/20 06:59 06:59 06:59 Intake Total 940 Balance 940 Result Diagrams: 05/30/20 06:13 05/30/20 06:12 Additional Labs: Accuchecks 05/31/20 05/30/20 05/30/20 05:24 20:06 17:14 POC Glucose 141 H 126 H 131 H 05/30/20 12:30 POC Glucose 109 H Radiology Reviewed by me: Yes EKG Reviewed by me: Yes Hospitalist ROS - Review of Systems Constitutional: reports: weakness Neurological: reports: weakness - Medication Medications: Active Medications Generic Name Dose Route Start Last Admin Trade Name Freq PRN Reason Stop Dose Admin Acetaminophen 1,000 mg 05/25/20 14:56 05/29/20 20:14 Acetaminophen 500 Mg Tab PO 1,000 mg Q6H PRN Administration Headache/Fever or Pain Albuterol/Ipratropium 3 ml 05/23/20 18:30 05/31/20 11:15 Ipratropium/Albuterol Sulfate 3 Ml Neb NEB 3 ml [id number] TEGAN Administration Alprazolam 0.25 mg 05/26/20 21:00 05/30/20 20:02 Alprazolam 0.25 Mg Tab PO Not Given HS TEGAN Aspirin 81 mg 05/19/20 09:00 05/31/20 09:23 Aspirin 81 Mg Enteric Coated Tablet PO 81 mg DAILY TEGAN Administration Atorvastatin Calcium 40 mg 05/19/20 21:00 05/30/20 20:02 Atorvastatin Calcium 40 Mg Tab PO 40 mg HS TEGAN Administration Enoxaparin Sodium 40 mg 05/19/20 09:00 05/31/20 09:23 Enoxaparin Sodium 40 Mg/0.4 Ml Syringe SC 40 mg 0900 TEGAN Administration Fluticasone Propionate 0 gm 05/23/20 09:00 05/31/20 09:23 Fluticasone Propionate Nasal [place] 16 Gm Bottle NASAL 1 spr DAILY TEGAN Administration Insulin Human Lispro 0 units 05/19/20 02:23 05/26/20 16:58 Humalog 300 Units/3 Ml Vial SC 2 unit .MILD SLIDING SCALE PRN Administration Mild Correctional Scale Levothyroxine Sodium 25 mcg 05/21/20 06:00 05/31/20 05:49 Levothyroxine Sodium 25 Mcg Tab PO 25 mcg 0600 TEGAN Administration Lisinopril 5 mg 05/24/20 09:00 05/31/20 09:23 Lisinopril 5 Mg Tab PO 5 mg DAILY TEGAN Administration Metformin HCl 1,000 mg 05/22/20 08:00 05/31/20 09:23 Metformin 500 Mg Tab PO 1,000 mg BID-WM TEGAN Administration Ondansetron HCl 4 mg 05/19/20 01:22 05/30/20 01:13 Ondansetron Odt 4 Mg Tab PO 4 mg Q6H PRN Administration Nausea/Vomiting Ondansetron HCl 4 mg 05/19/20 01:22 05/25/20 02:07 Ondansetron Pf 4 Mg/2 Ml Vial IVP 4 mg Q6H PRN Administration Nausea/Vomiting Sodium Chloride 10 ml 05/19/20 01:22 05/26/20 08:42 Flush - Normal Saline 10 Ml Syringe IVF 10 ml PRN PRN Administration Saline Flush - Exam General Appearance: NAD, awake alert Eye: PERRL, anicteric sclera ENT: normocephalic atraumatic, no oropharyngeal lesions, moist mucosa Neck: supple, symmetric, no JVD Heart: RRR, no murmur, no gallops Respiratory: CTAB, no wheezes, no rales Gastrointestinal: soft, non-tender, non-distended, normal bowel sounds Neurological: normal sensation to touch, facial droop, hemiplegia, speech deficit Psychiatric: normal affect, normal behavior, A&O x 3 Hosp A/P (1) Acute CVA (cerebrovascular accident) Code(s): I63.9 - CEREBRAL INFARCTION, UNSPECIFIED Status: Acute (2) Diabetes Code(s): E11.9 - TYPE 2 DIABETES MELLITUS WITHOUT COMPLICATIONS Status: [facility] [place] onic Qualifiers: Diabetes mellitus type: type 2 Diabetes mellitus complication status: with hyperglycemia (3) Hyperlipidemia Code(s): E78.5 - HYPERLIPIDEMIA, UNSPECIFIED Status: Chronic Qualifiers: Hyperlipidemia type: mixed hyperlipidemia Qualified Code(s): E78.2 - Mixed hyperlipidemia (4) Hypertension Code(s): I10 - ESSENTIAL (PRIMARY) HYPERTENSION Status: Chronic Qualifiers: Hypertension type: essential hypertension Qualified Code(s): I10 - Essential (primary) hypertension - Plan old records reviewed/req, PT/OT 05/30/2020. Patient with acute CVA with dense hemiplegia on the left. She is clinically stable for transfer to rehab. This can be done whenever she is approved. 05/31/2020. Patient has no specific concerns today. She is pending transfer to rehab. She can transfer whenever she is approved.
--- NOTE | 2020-05-31 15:36 | RAD ---
XR Chest 1 View History: Chest pain Comparison: Radiograph May 23, 2020 Findings: Lungs are clear. No pneumothorax or effusion. Cardiac silhouette and mediastinal contours a re within normal limits. No acute osseous abnormality. Impression: No acute intrathoracic abnormality.
[2020-05-31] MEDS: Atorvastatin Calcium 40 MG TAB PO SCH (20:13)
[2020-05-31] MEDS: ALPRAZolam 0.25 MG TAB PO SCH (20:14)
[2020-05-31] MEDS ORDERED: Sodium Chloride 0.9% 90 ML ONE (20:43)
[2020-06-01] MEDS: Levothyroxine Sodium 25 MCG TAB PO SCH (05:22)
[2020-06-01] MEDS: metFORMIN 500 MG TAB PO SCH ×2 (09:38→17:00)
[2020-06-01] MEDS: Aspirin 81 mg Enteric Coated Tablet PO SCH (09:38)
[2020-06-01] MEDS: Fluticasone Propionate Nasal Spray 16 gm Bottle NASAL SCH (09:39)
[2020-06-01] MEDS: Enoxaparin Sodium 40 MG/0.4 ML SYRINGE SC SCH (09:39)
[2020-06-01] MEDS: Lisinopril 5 MG TAB PO SCH (09:39)
[2020-06-01] MEDS: HumaLOG 300 UNITS/3 ML VIAL SC PRN (12:18)
--- NOTE | 2020-06-01 12:45 | PDOC.HOSPP ---
- Subjective Encounter Date: 06/01/20 Encounter Time: 12:44 Subjective: Patient seen and evaluated this morning. She is still pending bed availability at a rehab place. She continues to have a dense left hemiplegia. Her daughter was at the bedside when I visited today. No other acute issues today. She can discharge whenever a bed becomes available. - Objective Vital Signs & Weight: Vital Signs (12 hours) Temp Pulse Resp BP BP Pulse Ox 06/01/20 11:45 98.7 F 84 20 136/64 06/01/20 10:27 80 17 06/01/20 08:00 96 06/01/20 07:31 98.1 F 81 20 127/56 L 96 06/01/20 06:05 76 16 06/01/20 03:53 98 F 72 16 122/60 96 Weight Admit Weight 286 lb Weight 286 lb 2.56 oz I&O: 05/31/20 06/01/20 06/02/20 06:59 06:59 06:59 Intake Total 120 Balance 120 Result Diagrams: 05/30/20 06:13 05/30/20 06:12 Additional Labs: Accuchecks 06/01/20 06/01/20 05/31/20 11:10 05:20 20:07 POC Glucose 155 H 134 H 138 H 05/31/20 05/31/20 16:32 12:41 POC Glucose 124 H 137 H Radiology Reviewed by me: Yes EKG Reviewed by me: Yes Hospitalist ROS - Review of Systems Constitutional: reports: weakness, malaise Neurological: reports: weakness, change in speech - Medication Medications: Active Medications Generic Name Dose Route Start Last Admin Trade Name Autumn PRN Reason Stop Dose Admin Acetaminophen 1,000 mg 05/25/20 14:56 05/29/20 20:14 Acetaminophen 500 Mg Tab PO 1,000 mg Q6H PRN Administration Headache/Fever or Pain Albuterol/Ipratropium 3 ml 05/23/20 18:30 06/01/20 10:27 Ipratropium/Albuterol Sulfate 3 Ml Neb NEB 3 ml [id number] TEGAN Administration Alprazolam 0.25 mg 05/26/20 21:00 05/31/20 20:14 Alprazolam 0.25 Mg Tab PO Not Given HS TEGAN Aspirin 81 mg 05/19/20 09:00 06/01/20 09:38 Aspirin 81 Mg Enteric Coated Tablet PO 81 mg DAILY TEGAN Administration Atorvastatin Calcium 40 mg 05/19/20 21:00 05/31/20 20:13 Atorvastatin Calcium 40 Mg Tab PO 40 mg HS TEGAN Administration Enoxaparin Sodium 40 mg 05/19/20 09:00 06/01/20 09:39 Enoxaparin Sodium 40 Mg/0.4 Ml Syringe SC 40 mg 0900 TEGAN Administration Fluticasone Propionate 0 gm 05/23/20 09:00 06/01/20 09:39 Fluticasone Propionate Nasal [place] 16 Gm Bottle NASAL 1 spr DAILY TEGAN Administration Insulin Human Lispro 0 units 05/19/20 02:23 06/01/20 12:18 Humalog 300 Units/3 Ml Vial SC 2 unit .MILD SLIDING SCALE PRN Administration Mild Correctional Scale Levothyroxine Sodium 25 mcg 05/21/20 06:00 06/01/20 05:22 Levothyroxine Sodium 25 Mcg Tab PO 25 mcg 0600 TEGAN Administration Lisinopril 5 mg 05/24/20 09:00 06/01/20 09:39 Lisinopril 5 Mg Tab PO 5 mg DAILY TEGAN Administration Metformin HCl 1,000 mg 05/22/20 08:00 06/01/20 09:38 Metformin 500 Mg Tab PO 1,000 mg BID-WM TEGAN Administration Ondansetron HCl 4 mg 05/19/20 01:22 05/30/20 01:13 Ondansetron Odt 4 Mg Tab PO 4 mg Q6H PRN Administration Nausea/Vomiting Ondansetron HCl 4 mg 05/19/20 01:22 05/25/20 02:07 Ondansetron Pf 4 Mg/2 Ml Vial IVP 4 mg Q6H PRN Administration Nausea/Vomiting Sodium Chloride 10 ml 05/19/20 01:22 05/26/20 08:42 Flush - Normal Saline 10 Ml Syringe IVF 10 ml PRN PRN Administration Saline Flush - Exam General Appearance: ill appearing ENT: normocephalic atraumatic, no oropharyngeal lesions, moist mucosa Neck: supple, symmetric, no JVD, no thyromegaly, no lymphadenopathy Heart: RRR, no murmur, no gallops, no rubs, normal peripheral pulses Gastrointestinal: soft, non-tender, non-distended, normal bowel sounds Neurological: hemiplegia, speech deficit Musculoskeletal: generalized weakness Psychiatric: normal affect, normal behavior, A&O x 3 Hosp A/P (1) Acute CVA (cerebrovascular accident) Code(s): I63.9 - CEREBRAL INFARCTION, UNSPECIFIED Status: Acute (2) Diabetes Code(s): E11.9 - TYPE 2 DIABETES MELLITUS WITHOUT COMPLICATIONS Status: Chronic Qualifiers: Diabetes mellitus type: type 2 Diabetes mellitus complication status: with hyperglycemia (3) Hyperlipidemia Code(s): E78.5 - HYPERLIPIDEMIA, UNSPECIFIED Status: Chronic Qualifiers: Hyperlipidemia type: mixed hyperlipidemia Qualified Code(s): E78.2 - Mixed hyperlipidemia (4) Hypertension Code(s): I10 - ESSENTIAL (PRIMARY) HYPERTENSION Status: Chronic Qualifiers: Hypertension type: essential hypertension Qualified Code(s): I10 - Essential (primary) hypertension - Plan plan discussed w/ family, PT/OT, social work professor, speech therapy, out of bed/ambulate 05/30/2020. Patient with acute CVA with dense hemiplegia on the left. She is clinically stable for transfer to rehab. This can be done whenever she is approved. 05/31/2020. Patient has no specific concerns today. She is pending transfer to rehab. She can transfer whenever she is approved. 06/01/2020. No overnight issues noted. She continues to wait for a bed availability. She otherwise is medically stable and can transfer whenever she is approved.
[2020-06-01] MEDS: Acetaminophen 500 MG TAB PO PRN (19:31)
[2020-06-01] MEDS: ALPRAZolam 0.25 MG TAB PO SCH (19:32)
[2020-06-01] MEDS: Atorvastatin Calcium 40 MG TAB PO SCH (19:32)
[2020-06-02] MEDS: Levothyroxine Sodium 25 MCG TAB PO SCH (05:38)
[2020-06-02] MEDS: Enoxaparin Sodium 40 MG/0.4 ML SYRINGE SC SCH (09:56)
[2020-06-02] MEDS: Aspirin 81 mg Enteric Coated Tablet PO SCH (09:57)
[2020-06-02] MEDS: metFORMIN 500 MG TAB PO SCH ×2 (09:57→16:09)
[2020-06-02] MEDS: Lisinopril 5 MG TAB PO SCH (09:57)
[2020-06-02] MEDS: Fluticasone Propionate Nasal Spray 16 gm Bottle NASAL SCH (09:57)
--- NOTE | 2020-06-02 15:13 | PDOC.DS.DS ---
Provider - Provider Date of Admission: 05/20/20 13:07 Date of Discharge: 06/02/20 Admitting Provider: Nick Reddy MD Primary Care Physician: [facility] Clinic Course - Hospital Course Hospital Course: This is a 59-year-old woman who was admitted to the hospital with left-sided weakness and was diagnosed with acute stroke. She was within the window for TPA but after discussion with the medical team the patient declined TPA. She was placed on guideline directed medical therapy. She does have persistent left hemiplegia. She is felt to be in need of physical therapy and she has been accepted to go to rehab. We will discharge her today and she will follow up with rehab. She will continue aspirin 81 mg daily, Lipitor 80 mg at night. She will resume her usual home medications. Resuscitation Status: 05/19/20 01:22 Resuscitation Status Routine Resuscitation Status: FULL: Full Resuscitation - Labs Lab Results: 05/30/20 06:13 05/30/20 06:12 Microbiology - Entire Visit 05/22/20 22:40 Stool C. difficile GDH Antigen & Toxins - Final - Physical Exam Vitals: Vital Signs (12 hours) Temp Pulse Resp BP BP Pulse Ox 06/02/20 14:44 73 18 98 06/02/20 12:14 75 18 98 06/02/20 11:59 98.3 F 77 20 148/65 H 95 06/02/20 08:10 71 16 98 06/02/20 07:44 97.8 F 69 20 136/64 99 06/02/20 03:54 97.4 F L 69 18 110/53 L 95 Weight Admit Weight 286 lb 2.56 oz Weight 286 lb 2.56 oz Physical Exam: The patient was seen and examined on the day of discharge. Problem - Problem (1) Acute CVA (cerebrovascular accident) Code(s): I63.9 - CEREBRAL INFARCTION, UNSPECIFIED Status: Acute (2) Diabetes Code(s): E11.9 - TYPE 2 DIABETES MELLITUS WITHOUT COMPLICATIONS Status: Chronic Qualifiers: Diabetes mellitus type: type 2 Diabetes mellitus complication status: with hyperglycemia (3) Hyperlipidemia Code(s): E78.5 - HYPERLIPIDEMIA, UNSPECIFIED Status: Chronic Qualifiers: Hyperlipidemia type: mixed hyperlipidemia Qualified Code(s): E78.2 - Mixed hyperlipidemia (4) Hypertension Code(s): I10 - ESSENTIAL (PRIMARY) HYPERTENSION Status: Chronic Qualifiers: Hypertension type: essential hypertension Qualified Code(s): I10 - Essential (primary) hypertension - Time spent with Patient (mins): 30 Plan - Discharge Medications Prescriptions: Aspirin [Ecotrin Low Strength] 81 mg PO DAILY #30 tab Atorvastatin Calcium [Lipitor] 80 mg PO QPM #30 tablet Home Medications: Medication Instructions Recorded Confirmed Type Levothyroxine Sodium [Levo-T] 25 mcg PO DAILY 05/20/20 05/20/20 History Lisinopril 5 mg PO DAILY 05/20/20 05/20/20 History metFORMIN HCl [Metformin HCl] 1,000 mg PO BID 05/20/20 05/20/20 History Aspirin [Ecotrin Low Strength] 81 mg PO DAILY #30 tab 06/02/20 Rx Atorvastatin Calcium [Lipitor] 80 mg PO QPM #30 tablet 06/02/20 Rx Allergies: No Known Drug Allergies Allergy (Verified 05/20/20 03:06) - Discharge Instructions Activity:: Activity as Tolerated Nourishment:: Diabetic Diet Therapies:: Occupational Therapy, Physical Therapy, Speech Therapy Equipment/Supplies:: Not Applicable - Follow up Plan Referrals: [facility] [Primary Care Provider] - Cipriano Sorensen MD [Active] - (Follow-up for outpatient needle aspiration of the left neck mass.) Disposition: REHABILITATION INPATIENT Quality - Care Measures CORE MEASURES:: Stroke/TIA - Stroke/TIA Did you prescribe antithrombotic therapy?: Yes Did you prescribe anticoagulant for A Fib/Flutter?: No Specify reason for no DC anticoagulant: Treatment not indicated Did you prescribe a statin medication?: Yes
[2020-06-02] MEDS: Atorvastatin Calcium 40 MG TAB PO SCH (20:51)
[2020-06-02] MEDS: ALPRAZolam 0.25 MG TAB PO SCH (20:59)
[2020-06-03] MEDS: Levothyroxine Sodium 25 MCG TAB PO SCH (06:14)
[2020-06-03] MEDS: metFORMIN 500 MG TAB PO SCH (09:25)
[2020-06-03] MEDS: Lisinopril 5 MG TAB PO SCH (09:25)
[2020-06-03] MEDS: Aspirin 81 mg Enteric Coated Tablet PO SCH (09:25)
[2020-06-03] MEDS: Fluticasone Propionate Nasal Spray 16 gm Bottle NASAL SCH (09:26)
[2020-06-03] MEDS: Enoxaparin Sodium 40 MG/0.4 ML SYRINGE SC SCH (09:26)
--- NOTE | 2020-06-03 11:07 | PDOC.HOSPP ---
- Subjective Encounter Date: 06/03/20 Encounter Time: 11:06 Subjective: Patient was accepted at a rehab place in [facility]. She is discharged today to rehab. - Objective Vital Signs & Weight: Vital Signs (12 hours) Temp Pulse Resp BP BP Pulse Ox 06/03/20 09:25 78 06/03/20 08:20 78 18 98 06/03/20 07:40 97.8 F 75 20 125/61 95 06/03/20 05:00 98.7 F 76 20 137/64 96 Weight Admit Weight 286 lb 2.56 oz Weight 286 lb 2.56 oz I&O: 06/02/20 06/03/20 06/04/20 06:59 06:59 06:59 Intake Total 480 Balance 480 Result Diagrams: 05/30/20 06:13 05/30/20 06:12 Additional Labs: Accuchecks 06/03/20 06/02/20 06/02/20 05:52 20:30 16:38 POC Glucose 113 H 126 H 71 06/02/20 11:12 POC Glucose 129 H Radiology Reviewed by me: Yes EKG Reviewed by me: Yes Hospitalist ROS - Review of Systems Constitutional: reports: weakness Neurological: reports: weakness, incoordination, change in speech - Medication Medications: Active Medications Generic Name Dose Route Start Last Admin Trade Name Freq PRN Reason Stop Dose Admin Acetaminophen 1,000 mg 05/25/20 14:56 06/01/20 19:31 Acetaminophen 500 Mg Tab PO 1,000 mg Q6H PRN Administration Headache/Fever or Pain Albuterol/Ipratropium 3 ml 05/23/20 18:30 06/03/20 08:20 Ipratropium/Albuterol Sulfate 3 Ml Neb NEB 3 ml [id number] TEGAN Administration Alprazolam 0.25 mg 05/26/20 21:00 06/02/20 20:59 Alprazolam 0.25 Mg Tab PO Not Given HS TEGAN Aspirin 81 mg 05/19/20 09:00 06/03/20 09:25 Aspirin 81 Mg Enteric Coated Tablet PO 81 mg DAILY TEGAN Administration Atorvastatin Calcium 40 mg 05/19/20 21:00 06/02/20 20:51 Atorvastatin Calcium 40 Mg Tab PO 40 mg HS TEGAN Administration Enoxaparin Sodium 40 mg 05/19/20 09:00 06/03/20 09:26 Enoxaparin Sodium 40 Mg/0.4 Ml Syringe SC 40 mg 0900 TEGAN Administration Fluticasone Propionate 0 gm 05/23/20 09:00 06/03/20 09:26 Fluticasone Propionate Nasal [place] 16 Gm Bottle NASAL 1 spr DAILY TEGAN Administration Insulin Human Lispro 0 units 05/19/20 02:23 06/01/20 12:18 Humalog 300 Units/3 Ml Vial SC 2 unit .MILD SLIDING SCALE PRN Administration Mild Correctional Scale Levothyroxine Sodium 25 mcg 05/21/20 06:00 06/03/20 06:14 Levothyroxine Sodium 25 Mcg Tab PO 25 mcg 0600 TEGAN Administration Lisinopril 5 mg 05/24/20 09:00 06/03/20 09:25 Lisinopril 5 Mg Tab PO 5 mg DAILY TEGAN Administration Metformin HCl 1,000 mg 05/22/20 08:00 06/03/20 09:25 Metformin 500 Mg Tab PO 1,000 mg BID-WM TEGAN Administration Ondansetron HCl 4 mg 05/19/20 01:22 05/30/20 01:13 Ondansetron Odt 4 Mg Tab PO 4 mg Q6H PRN Administration Nausea/Vomiting Ondansetron HCl 4 mg 05/19/20 01:22 05/25/20 02:07 Ondansetron Pf 4 Mg/2 Ml Vial IVP 4 mg Q6H PRN Administration Nausea/Vomiting Sodium Chloride 10 ml 05/19/20 01:22 05/26/20 08:42 Flush - Normal Saline 10 Ml Syringe IVF 10 ml PRN PRN Administration Saline Flush - Exam General Appearance: NAD, awake alert Eye: PERRL, anicteric sclera ENT: normocephalic atraumatic, no oropharyngeal lesions Neck: supple, symmetric, no JVD, no thyromegaly Heart: RRR, no murmur, no gallops, no rubs, normal peripheral pulses Respiratory: CTAB Gastrointestinal: soft, non-tender Musculoskeletal: generalized weakness Psychiatric: normal affect, normal behavior, A&O x 3 Hosp A/P (1) Acute CVA (cerebrovascular accident) Code(s): I63.9 - CEREBRAL INFARCTION, UNSPECIFIED Status: Acute (2) Diabetes Code(s): E11.9 - TYPE 2 DIABETES MELLITUS WITHOUT COMPLICATIONS Status: Chron ic Qualifiers: Diabetes mellitus type: type 2 Diabetes mellitus complication status: with hyperglycemia (3) Hyperlipidemia Code(s): E78.5 - HYPERLIPIDEMIA, UNSPECIFIED Status: Chronic Qualifiers: Hyperlipidemia type: mixed hyperlipidemia Qualified Code(s): E78.2 - Mixed hyperlipidemia (4) Hypertension Code(s): I10 - ESSENTIAL (PRIMARY) HYPERTENSION Status: Chronic Qualifiers: Hypertension type: essential hypertension Qualified Code(s): I10 - Essential (primary) hypertension - Plan 05/30/2020. Patient with acute CVA with dense hemiplegia on the left. She is clinically stable for transfer to rehab. This can be done whenever she is approved. 05/31/2020. Patient has no specific concerns today. She is pending transfer to rehab. She can transfer whenever she is approved. 06/01/2020. No overnight issues noted. She continues to wait for a bed availability. She otherwise is medically stable and can transfer whenever she is approved.
--- NOTE | 2020-06-03 13:14 | PDOC.NEUPN ---
- Subjective Encounter Date: 06/03/20 Subjective: No acute complaints during the last 24 hours. - Objective Vital Signs & Weight: Vital Signs (12 hours) Temp Pulse Resp BP BP Pulse Ox 06/03/20 11:06 76 18 98 06/03/20 09:25 78 06/03/20 08:20 78 18 98 06/03/20 07:40 97.8 F 75 20 125/61 95 06/03/20 05:00 98.7 F 76 20 137/64 96 Weight Admit Weight 286 lb 2.56 oz Weight 286 lb 2.56 oz I&O: 06/02/20 06/03/20 06/04/20 06:59 06:59 06:59 Intake Total 480 Balance 480 Result Diagrams: 05/30/20 06:13 05/30/20 06:12 Additional Labs: Accuchecks 06/03/20 06/03/20 06/02/20 11:55 05:52 20:30 POC Glucose 136 H 113 H 126 H 06/02/20 16:38 POC Glucose 71 Radiology Reviewed by me: Yes EKG Reviewed by me: Yes ROS - Review of Systems Constitutional: denies: fever, chills, sweats, weakness, malaise, other Eyes: denies: pain, vision change, conjunctivae inflammation, eyelid inflammation, redness, other ENT: denies: ear pain, ear discharge, nose pain, nose discharge, nose congestion, mouth pain, mouth swelling, throat pain, throat swelling, other Respiratory: denies: cough, dry, shortness of breath, hemoptysis, SOB with excertion, pleuritic pain, sputum, wheezing, other Skin: denies: rash, lesions, dav, bruising, other Neurological: reports: weakness, numbness, incoordination, change in speech - Medication Medications: Active Medications Generic Name Dose Route Start Last Admin Trade Name Freq PRN Reason Stop Dose Admin Acetaminophen 1,000 mg 05/25/20 14:56 06/01/20 19:31 Acetaminophen 500 Mg Tab PO 1,000 mg Q6H PRN Administration Headache/Fever or Pain Albuterol/Ipratropium 3 ml 05/23/20 18:30 06/03/20 11:06 Ipratropium/Albuterol Sulfate 3 Ml Neb NEB 3 ml [id number] TGEAN Administration Alprazolam 0.25 mg 05/26/20 21:00 06/02/20 20:59 Alprazolam 0.25 Mg Tab PO Not Given HS [facility] Aspirin 81 mg 05/19/20 09:00 06/03/20 09:25 Aspirin 81 Mg Enteric Coated Tablet PO 81 mg DAILY TEGAN Administration Atorvastatin Calcium 40 mg 05/19/20 21:00 06/02/20 20:51 Atorvastatin Calcium 40 Mg Tab PO 40 mg HS [facility] Administration Enoxaparin Sodium 40 mg 05/19/20 09:00 06/03/20 09:26 Enoxaparin Sodium 40 Mg/0.4 Ml Syringe SC 40 mg 0900 [facility] Administration Fluticasone Propionate 0 gm 05/23/20 09:00 06/03/20 09:26 Fluticasone Propionate Nasal [place] 16 Gm Bottle NASAL 1 spr DAILY [facility] Administration Insulin Human Lispro 0 units 05/19/20 02:23 06/01/20 12:18 Humalog 300 Units/3 Ml Vial SC 2 unit .MILD SLIDING SCALE PRN Administration Mild Correctional Scale Levothyroxine Sodium 25 mcg 05/21/20 06:00 06/03/20 06:14 Levothyroxine Sodium 25 Mcg Tab PO 25 mcg 0600 [facility] Administration Lisinopril 5 mg 05/24/20 09:00 06/03/20 09:25 Lisinopril 5 Mg Tab PO 5 mg DAILY [facility] Administration Metformin HCl 1,000 mg 05/22/20 08:00 06/03/20 09:25 Metformin 500 Mg Tab PO 1,000 mg BID-WM [facility] Administration Ondansetron HCl 4 mg 05/19/20 01:22 05/30/20 01:13 Ondansetron Odt 4 Mg Tab PO 4 mg Q6H PRN Administration Nausea/Vomiting Ondansetron HCl 4 mg 05/19/20 01:22 05/25/20 02:07 Ondansetron Pf 4 Mg/2 Ml Vial IVP 4 mg Q6H PRN Administration Nausea/Vomiting Sodium Chloride 10 ml 05/19/20 01:22 05/26/20 08:42 Flush - Normal Saline 10 Ml Syringe IVF 10 ml PRN PRN Administration Saline Flush - Exam General Appearance: awake alert Eye: PERRL ENT: normocephalic atraumatic Neck: supple Respiratory: CTAB Cardiovascular: RRR Gastrointestinal: soft Extremities: no cyanosis Skin: normal turgor Neurological: no new deficit, facial droop, hemiplegia, speech deficit Musculoskeletal: normal tone, no muscle wasting PSYCH: normal affect, normal behavior, A&O x 3 Results - Labs Result Diagrams: 05/30/20 06:13 05/30/20 06:12 Lab results: WBC 7.5 thou/uL (4.8-10.8) 05/30/20 06:13 Hgb 13.3 g/dL (12.0-16.0) 05/30/20 06:13 Hct 38.3 % (36.0-47.0) 05/30/20 06:13 MCV 84.7 fL (78.0-98.0) 05/30/20 06:13 Plt Count 163 thou/uL (130-400) 05/30/20 06:13 Neutrophils % 60.0 % (42.0-75.0) 05/30/20 06:13 Sodium 136 mmol/L (136-145) 05/30/20 06:12 Potassium 3.6 mmol/L (3.5-5.1) 05/30/20 06:12 Chloride 102 mmol/L (98-107) 05/30/20 06:12 Carbon Dioxide 23 mmol/L (22-29) 05/30/20 06:12 BUN 13 mg/dL (9.8-20.1) 05/30/20 06:12 Creatinine 0.70 mg/dL (0.6-1.1) 05/30/20 06:12 Glucose 115 mg/dL (70-105) H 05/30/20 06:12 Calcium 9.7 mg/dL (7.8-10.44) 05/30/20 06:12 Total Bilirubin 0.5 mg/dL (0.2-1.2) 05/18/20 19:18 AST 11 U/L (5-34) 05/18/20 19:18 ALT 12 U/L (8-55) 05/18/20 19:18 Alkaline Phosphatase 134 U/L (40-110) H 05/18/20 19:18 Troponin I Less than 0.010 ng/mL (< 0.028) 05/18/20 19:18 B-Natriuretic Peptide Less than 10.0 pg/mL (0-100) 05/18/20 19:18 Serum Total Protein 7.8 g/dL (6.0-8.3) 05/18/20 19:18 Albumin 3.8 g/dL (3.5-5.0) 05/18/20 19:18 PN A/P (1) Acute CVA (cerebrovascular accident) Code(s): I63.9 - CEREBRAL INFARCTION, UNSPECIFIED Status: Acute (2) Hypertension Code(s): I10 - ESSENTIAL (PRIMARY) HYPERTENSION Status: Chronic Qualifiers: Hypertension type: essential hypertension Qualified Code(s): I10 - Essential (primary) hypertension (3) Hyperlipidemia Code(s): E78.5 - HYPERLIPIDEMIA, UNSPECIFIED Status: Chronic Qualifiers: Hyperlipidemia type: mixed hyperlipidemia Qualified Code(s): E78.2 - Mixed hyperlipidemia (4) Diabetes Code(s): E11.9 - TYPE 2 DIABETES MELLITUS WITHOUT COMPLICATIONS Status: Chronic Qualifiers: Diabetes mellitus type: type 2 Diabetes mellitus complication status: with hyperglycemia - Plan Daily Plan: PT/OT, speech therapy, DVT proph w/lovenox, DVT proph w/SCDs Mrs. Bartlett is a 59-year-old female who presented with acute onset left-sided weakness. She was in the window for TPA but patient declined it. She continues to have significant left sided focal deficits No acute events in the last 24 hours. Case management on board regarding discharge planning. Awaiting rehab placement. Discharge most likely today to [facility]. She did not have MRI Brain due to weight issues Repeat head CT 48 hours after symptom onset showed evidence of subacute lacunar infarction in the right basal ganglia extending into the right very periventricular white matter. Neurochecks every 4 hours. EEG to rule out cortical irritability is negative for seizure activity. Initial head CT reviewed which was negative for acute intracranial pathology. CTA of the head and neck did not show hemodynamically significant stenosis. Telemetry to rule out arrhythmias. 2D echo showed ejection fraction 55 to 60%. No thrombus or PFO. Control of blood pressure Strict control of blood glucose Continue aspirin and high intensity statin for secondary stroke prevention. PT/OT/speech. Continue medical management per primary team Plan discussed in detail with the patient
[2020-06-03 16:29] VITALS: BP 114/53; TEMP 98.7
== END 2020-06-03 16:00 | DRG 65 ==
LOC: ERS 19:07 → ERHOLD 21:58 → PACU-TCU 05-19 15:32 → OBSVTOIN 05-20 13:07 → 3SE 05-22 15:29
PROVIDERS: ADMIT Student in an Organized Health Care Education/Training Program; ATTEND Hospitalist
DX: I63.511 Cerebral infarction due to unspecified occlusion or stenosis of right middle cerebral artery (principal); G81.94 Hemiplegia, unspecified affecting left nondominant side; I16.1 Hypertensive emergency; Z68.42 Body mass index [BMI] 45.0-49.9, adult; Z20.822 Contact with and (suspected) exposure to COVID-19; E03.9 Hypothyroidism, unspecified; R29.810 Facial weakness; I10 Essential (primary) hypertension; R29.702 NIHSS score 2; E11.65 Type 2 diabetes mellitus with hyperglycemia; K11.8 Other diseases of salivary glands; E66.01 Morbid (severe) obesity due to excess calories; R13.10 Dysphagia, unspecified; R22.1 Localized swelling, mass and lump, neck; G93.89 Other specified disorders of brain; R47.1 Dysarthria and anarthria; E78.2 Mixed hyperlipidemia; Z53.29 Procedure and treatment not carried out because of patient's decision for other reasons; Z79.890 Hormone replacement therapy; Z79.84 Long term (current) use of oral hypoglycemic drugs; Z79.899 Other long term (current) drug therapy
CPT/HCPCS: 36415; 36416; 70450; 70496; 70498; 71045; 74230; 80048; 80053; 80061; 83735; 83880; 84484; 85025; 85610; 85730; 87324; 87449; 93005; 93306; 94640; 94760; 95712; 95816; 95819; 95957; 96372; 96374; 96375; 96376; G0378; J1650; J1815; J1885; J2405; J7620; Q0162; Q9967; U0002

== ENCOUNTER 2020-09-14 08:44 | Outpatient (CLI) | payer OTHER | END 2020-09-14 08:45 | disposition home or self-care (01) | LOC: BICRAD 08:44 | PROVIDERS: ATTEND Internal Medicine | DX: Z02.71 Encounter for disability determination (principal); M25.462 Effusion, left knee; M17.12 Unilateral primary osteoarthritis, left knee | CPT/HCPCS: 71046 ==

== ENCOUNTER 2021-12-24 14:49 | Emergency (ER) | payer OTHER | END 2021-12-24 16:36 | disposition home or self-care (01) | LOC: ERS 14:49 | DX: S09.90XA Unspecified injury of head, initial encounter (principal); M51.26 Other intervertebral disc displacement, lumbar region; E11.9 Type 2 diabetes mellitus without complications; E03.9 Hypothyroidism, unspecified; Z79.84 Long term (current) use of oral hypoglycemic drugs; Z79.82 Long term (current) use of aspirin | CPT/HCPCS: 70450; 72131 ==

== ENCOUNTER 2023-06-13 13:17 | Outpatient (CLI) | payer MEDICARE, OTHER | END 2023-06-13 13:18 | disposition home or self-care (01) | PROVIDERS: ATTEND Family Medicine | DX: G81.94 Hemiplegia, unspecified affecting left nondominant side (principal) ==